=== PATIENT | male | born 1945 | race Caucasian/White ===

== ENCOUNTER 2016-08-03 10:17 | Emergency (ER) | payer MEDICARE, BC, OTHER ==
[~2016-08-03 10:17] MED LIST: ASPI1TAB69 PO; BUPR150CR PO; CARD180C5 PO; GABA300C5 PO; LIPI10TA PO; METH2.5T PO; PRED-503 PO; PROT40TA PO; PROV200T11 PO; SIMP50IN SQ; TRAZ150T75 PO
[2016-08-03 10:19] VITALS: BP 168/83; PULSE 62; RESP 18; TEMP 97.5; O2SAT 98
--- NOTE | 2016-08-03 10:26 | PD ---
HPI Chief Complaint: GI Complaint Time Seen by Provider: 10:24 Travel History International Travel<30 days: No Contact w/Intl Traveler<30days: No Traveled to known affect area: No History of Present Illness HPI This is a 71 year old male who presents to the emergency department with epigastric abdominal pain that started yesterday, non-radiating, constant, severe. Pt. denies any vomiting or diarrhea, but does feel nauseous. This has happened to him in the past and he has been prescribed omeprazole and it hasn't helped his symptoms. (-) fevers/chills Pt. has been told he has an "ulcerated esophagus" in the past. Pt. had a recent endoscopy confirming this. PFSH Past Medical History Hx Anticoagulant Therapy: Yes Arthritis: Yes Atrial Fibrillation: Yes Autoimmune Disease: No Blood Disorders: No Anxiety: Yes Depression: Yes Heart Rhythm Problems: No Cancer: No Cardiac Catheterization: Yes (stent) Cardiovascular Problems: Yes High Cholesterol: Yes Chemotherapy: No Chest Pain: Yes Congestive Heart Failure: Yes Coronary Artery Disease: Yes Diabetes: Yes Diminished Hearing: Yes (HEARING AIDS) Endocrine: No Gastrointestinal Disorders: No GERD: No Glaucoma: No Genitourinary: Yes Hepatitis: No Hiatal Hernia: No Heparin Induced Thrombocytopen: No Hypertension: Yes Immune Disorder: Yes (RA) Implanted Vascular Access Dvce: No Kidney Stones: No Musculoskeletal: Yes (ARTHRITIS) Neurologic: No Psychiatric: Yes (DEPRESSION/ANXIETY) Reproductive: No Respiratory: No Integumentary: Yes (psoriasis ) Immunizations Current: No Myocardial Infarction: Yes (2006) Radiation Therapy: No Renal Failure: No Thyroid Disease: No Ulcer: No ?: Not Past Surgical History Abdominal Surgery: No AICD: No Appendectomy: No Arteriovenous Shunt: No Body Medical Devices: cardiac stent Cardiac Surgery: Yes (CARDIAC STENTS PLACED 2006) Cholecystectomy: No Coronary Artery Bypass Graft: No Ear Surgery: No Endocrine Surgery: No Eye Surgery: No Genitourinary Surgery: No Insulin Pump: No Joint Replacement: No Neurologic Surgery: No Oral Surgery: No Pacemaker: No Thoracic Surgery: No Other Surgery: Yes (throat 1964 sliced) Social History Alcohol Use: Yes (OCCASSIONAL GLASS WINE) Tobacco Use: No Substance Use: Yes (pot nightly; 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.) Allergies-Medications (Allergen,Severity, Reaction): Coded Allergies: Imodium (Verified Allergy, Severe, 08/03/16) Lomotil (Verified Allergy, Severe, HIVES, 08/03/16) Reported Meds & Prescriptions Reported Meds & Active Scripts Active Reported Omeprazole 20 Mg Tab 20 Mg PO DAILY Trazodone (Trazodone HCl) 150 Mg Tab 150 Mg PO HS Simponi Inj (Golimumab) 50 Mg/0.5 Ml Syr 50 Mg SQ Q30D Deltasone (Prednisone) 20 Mg Tab 5 Mg PO DAILY Protonix (Pantoprazole Sodium) 40 Mg Tab 40 Mg PO DAILY Provigil (Modafinil) 200 Mg Tab 200 Mg PO DAILY Methotrexate 2.5 Mg Tab 2.5 Mg PO Q7D Gabapentin 300 Mg Cap 300 Mg PO TID Cardizem CD 24 HR (Diltiazem CD 24 HR) 180 Mg Caper 180 Mg PO HS Wellbutrin SR 12 HR (Bupropion HCl) 150 Mg Tab 150 Mg PO HS Lipitor (Atorvastatin Calcium) 10 Mg Tab 10 Mg PO HS Aspirin 81 Mg Tabdr 162 Mg PO HS Review of Systems Except as stated in HPI: all other systems reviewed are Neg Physical Exam Narrative GENERAL:Uncomfortable appearing. SKIN: Focused skin assessment warm and dry. HEAD: Atraumatic. Normocephalic. EYES: Pupils equal and round. No injection or drainage. ENT: Moist mucous membranes NECK: Trachea midline. CARDIOVASCULAR: Regular rate and rhythm. No murmur appreciated. RESPIRATORY: Clear to auscultation. Breath sounds equal bilaterally. GASTROINTESTINAL: Abdomen soft, tender to palpation in the epigastrium with guarding diffusely. MUSCULOSKELETAL: No obvious deformities. NEUROLOGICAL: Awake and alert. No obvious cranial nerve deficits. Moving all extremities. PSYCHIATRIC: Appropriate mood and affect; insight and judgment normal. Data Data Last Documented VS Vital Signs Date Time Temp Pulse Resp B/P Pulse Ox O2 Delivery O2 Flow Rate FiO2 08/03/16 11:48 70 18 133/71 99 Room Air 08/03/16 10:19 97.5 Orders Complete Blood Count With Diff (08/03/16 10:30) Comprehensive Metabolic Panel (08/03/16 10:30) Lipase (08/03/16 10:30) Urinalysis - C+S If Indicated (08/03/16 10:30) Ct Abd/Pel W Iv Contrast(Rout) (08/03/16 10:30) Iv Access Insert/Monitor (08/03/16 10:30) Ecg Monitoring (08/03/16 10:30) Oximetry (08/03/16 10:30) Sodium Chloride 0.9% Flush (Ns Flush) (08/03/16 10:30) Chest, Single Ap (08/03/16 ) Hydromorphone Pf Inj (Dilaudid Pf Inj) (08/03/16 10:30) Ondansetron Inj (Zofran Inj) (08/03/16 10:30) Sodium Chlor 0.9% 1000 Ml Inj (Ns 1000 M (08/03/16 10:30) Iohexol 350 Inj (Omnipaque 350 Inj) (08/03/16 11:47) Labs Laboratory Tests Test 08/03/16 08/03/16 10:40 11:45 White Blood Count 10.9 TH/MM3 Red Blood Count 4.60 MIL/MM3 Hemoglobin 14.3 GM/DL Hematocrit 43.4 % Mean Corpuscular Volume 94.2 FL Mean Corpuscular Hemoglobin 31.1 PG Mean Corpuscular Hemoglobin 33.0 % Concent Red Cell Distribution Width 16.4 % Platelet Count 172 TH/MM3 Mean Platelet Volume 7.8 FL Neutrophils (%) (Auto) 72.5 % Lymphocytes (%) (Auto) 20.3 % Monocytes (%) (Auto) 5.6 % Eosinophils (%) (Auto) 0.7 % Basophils (%) (Auto) 0.9 % Neutrophils # (Auto) 7.9 TH/MM3 Lymphocytes # (Auto) 2.2 TH/MM3 Monocytes # (Auto) 0.6 TH/MM3 Eosinophils # (Auto) 0.1 TH/MM3 Basophils # (Auto) 0.1 TH/MM3 CBC Comment DIFF FINAL Differential Comment Sodium Level 139 MEQ/L Potassium Level 3.4 MEQ/L Chloride Level 102 MEQ/L Carbon Dioxide Level 27.5 MEQ/L Anion Gap 10 MEQ/L Blood Urea Nitrogen 21 MG/DL Creatinine 1.40 MG/DL Estimat Glomerular Filtration 50 ML/MIN Rate Random Glucose 134 MG/DL Calcium Level 9.7 MG/DL Total Bilirubin 0.7 MG/DL Aspartate Amino Transf 21 U/L (AST/SGOT) Alanine Aminotransferase 26 U/L (ALT/SGPT) Alkaline Phosphatase 55 U/L Total Protein 7.0 GM/DL Albumin 3.5 GM/DL Lipase 160 U/L Urine Collection Type VOIDED Urine Color YELLOW Urine Turbidity CLEAR Urine pH 8.0 Urine Specific [place] 1.027 Urine Protein TRACE mg/dL Urine Glucose (UA) 100 mg/dL Urine Ketones 40 mg/dL Urine Occult Blood TRACE Urine Nitrite NEG Urine Bilirubin NEG Urine Leukocyte Esterase NEG Urine RBC 0-3 /hpf Urine WBC 0-2 /hpf Urine Squamous Epithelial 0-5 /hpf Cells Urine Amorphous Sediment FEW Urine Bacteria RARE /hpf Microscopic Urinalysis Comment CULT NOT INDICATED Urine Collection Time 1145 MDM Medical Decision Making Medical Screen Exam Complete: Yes Emergency Medical Condition: Yes Interpretation(s) Afebrile, no tachycardia, hypertensive No leukocytosis Renal insufficiency similar to prior Lipase normal Urinalysis: Glucosuria and some ketonuria Differential Diagnosis Pancreatitis, gastritis, peptic ulcer disease, cholelithiasis, cholecystitis, perforated peptic ulcer Narrative Course Is a 71-year-old male who presents to the emergency department with abdominal pain. He is diffusely tender on exam and looks uncomfortable. He is placed in a monitor and an IV was established. Labs are obtained which were all reassuring and CT abdomen and pelvis is negative for acute surgical etiology of his symptoms. I suspect he is having symptomatic reflux and possibly gastritis. He will be discharged on Zantac in addition to his PPI as well as sucralfate. Diagnosis Primary Impression: Abdominal pain Qualified Code: R10.84 - Generalized abdominal pain Patient Instructions: General Instructions Additional Instructions: If you develop severe or worsening abdominal pain, fever>100.4, persistent vomiting or inability to eat or drink return to the emergency department immediately. Follow up with your primary care physician in 1-2 days for a check-up. Med/Other Pt SpecificInfo: Prescription(s) given Scripts Sucralfate 1 Gm Tab1 Gm PO TID #90 TAB Ref 0 on empty stomach Prov:Shabnam Sims MD 08/03/16 Ranitidine 150 Mg [id number] Mg PO BID #60 TAB Ref 0 Prov:Shabnam Sims MD 08/03/16 Disposition: 01 DISCHARGE HOME Condition: Stable Shabnam Sims MD August 03, 2016 10:26
[2016-08-03] MEDS ORDERED: OMEP20TA PO (10:27)
[2016-08-03] MEDS ORDERED: ONDANSETRON HCL 4 MG/2 ML VIAL IV PUSH ONE (10:30)
[2016-08-03] MEDS ORDERED: SODIUM CHLORIDE 0.9% FLUSH 10 ML FLUSH IV FLUSH PRN (10:30)
[2016-08-03] MEDS ORDERED: SODIUM CHLOR 0.9% 1000 ML INJ 1,000 ML IV ONE (10:30)
[2016-08-03] MEDS ORDERED: HYDROmorphone HCL PF 1 MG/ML VIAL IV PUSH ONE (10:30)
[2016-08-03 10:45] VITALS: BP 156/83; PULSE 60; RESP 18; O2SAT 99
[2016-08-03 10:57] LABS: AUTOMATED NEUTROPHIL # 7.9 TH/MM3 (1.8-7.7); BASOPHIL # 0.1 TH/MM3 (0-0.2); BASOPHIL % 0.9 % (0.0-2.0); EOSINOPHIL # 0.1 TH/MM3 (0-0.4); EOSINOPHIL % 0.7 % (0.0-4.0); HEMATOCRIT 43.4 % (39.0-51.0); HEMO FLAGS DIFF FINAL; LYMPH % 20.3 % (9.0-44.0); LYMPHOCYTE # 2.2 TH/MM3 (1.0-4.8); MEAN CELL VOLUME 94.2 FL (80.0-100.0); MEAN CORPUSCULAR HEMOGLOBIN 31.1 PG (27.0-34.0); MONO % 5.6 % (0.0-8.0); NEUT % 72.5 % (16.0-70.0); PLATELET COUNT 172 TH/MM3 (150-450); RED CELL DISTRIBUTION WIDTH 16.4 % (11.6-17.2); WHITE BLOOD COUNT 10.9 TH/MM3 (4.0-11.0)
[2016-08-03 11:08] LABS: CHLORIDE 102 MEQ/L (98-107); POTASSIUM 3.4 MEQ/L (3.5-5.1); SODIUM (NA) 139 MEQ/L (136-145)
[2016-08-03 11:14] LABS: ANION GAP 10 MEQ/L (5-15); BICARBONATE 27.5 MEQ/L (21.0-32.0); BLOOD UREA NITROGEN 21 MG/DL (7-18)
[2016-08-03 11:17] LABS: ALT (GPT) 26 U/L (12-78); AST (GOT) 21 U/L (15-37); GLOMERULAR FILTRATION RATE 50 ML/MIN (>89)
[2016-08-03 11:18] LABS: TOTAL BILIRUBIN ADULT 0.7 MG/DL (0.2-1.0)
[2016-08-03 11:20] LABS: ALKALINE PHOSPHATASE 55 U/L (45-117)
[2016-08-03] MEDS ORDERED: IOHEXOL 350 MG/ML 10 ML VIAL (for RAD DIAG) IV ONE (11:47)
[2016-08-03 11:48] VITALS: BP 133/71; PULSE 70; RESP 18; O2SAT 99
[2016-08-03 11:54] LABS: BLOOD, URINE TRACE (NEG); GLUCOSE,URINE 100 mg/dL (NEG); KETONE, URINE 40 mg/dL (NEG); NITRITE,URINE NEG (NEG)
[2016-08-03 12:10] LABS: METHOD OF COLLECTION VOIDED; URINE COLOR YELLOW (YELLW/STRAW)
[2016-08-03 12:13] LABS: RBC, URINE 0-3 /hpf (0-3); SQUAMOUS EPITHELIAL CELL URINE 0-5 /hpf (0-5); WBC, URINE 0-2 /hpf (0-5)
[2016-08-03 12:15] LABS: BACTERIA, URINE RARE /hpf
[2016-08-03 12:17] LABS: COMMENT (UR) CULT NOT INDICATED; CULTURE IF INDICATED CULT NOT INDICATED
--- NOTE | 2016-08-03 12:18 | RADHPO ---
EXAM DATE/TIME: 08/03/2016 11:29 [facility] COMPARISON: CT ABDOMEN & PELVIS W CONTRAST, March 01, 2014, 13:42. INDICATIONS : Abdomen pain. IV CONTRAST: 71 cc Omnipaque 350 (iohexol) IV ORAL CONTRAST: No oral contrast ingested. RADIATION DOSE: 12.09 CTDIvol (mGy) MEDICAL HISTORY : Hypertension. SURGICAL HISTORY : ENCOUNTER: Initial ACUITY: 1 day PAIN SCALE: 2/10 LOCATION: TECHNIQUE: Volumetric scanning of the abdomen and pelvis was performed. Using automated exposure control and ad justment of the mA and/or kV according to patient size, radiation dose was kept as low as reasonably achievable to obtain optimal diagnostic quality images. FINDINGS: Coronary artery calcifications are present. Examination of the lung bases demonstrates no abnormality . No pleural fluid is identified. No pulmonary nodules are present. There is hypodensity within the l iver compatible with cyst measuring 10 mm in segment 5. The spleen is normal in size and free of foca l defects. The gallbladder and pancreas are unremarkable. No intrahepatic or extrahepatic ductal dila tation is seen. The right adrenal gland is unremarkable. There is a nodule in the left adrenal gland likely reflecting adenoma measuring 10 mm. There are multiple stones within the right kidney without hydronephrosis the largest measuring 6 mm in the lower pole. There is a single simple cyst in the le ft kidney measuring 3 cm in the lower pole. Examination of the pelvis demonstrates no evidence of free fluid or pelvic mass. No abnormally enlarg ed inguinal or retroperitoneal lymph nodes are present. The bladder is unremarkable. There is diverti culosis without evidence of diverticulitis. The prostate gland is moderately enlarged impinging on th e bladder base. CONCLUSION: 1. No evidence of acute abdominal or pelvic process. No masses are identified. 2. Diverticulosis without evidence of diverticulitis. Pancho Saba MD on August 03, 2016 at 12:11 Board Certified Radiologist. This report was verified electronically.
[2016-08-03] MEDS ORDERED: SUCR1TAB PO (12:40)
[2016-08-03] MEDS ORDERED: RANI150T PO (12:40)
--- NOTE | 2016-08-03 12:41 | RADHPO ---
EXAM DATE/TIME: 08/03/2016 11:18 [facility] COMPARISON: CHEST SINGLE AP, November 09, 2013, 16:06. INDICATIONS : Short of breath, upper abdominal pain. MEDICAL HISTORY : Cardiovascular disease. Myocardial infarction. Hypertension SURGICAL HISTORY : cardiac stent ENCOUNTER: Initial ACUITY: 2 weeks PAIN SCORE: 2/10 LOCATION: Bilateral chest FINDINGS: A single view of the chest demonstrates minimal left basilar density. Right lung clear. The cardiome diastinal contours are unremarkable. Osseous structures are intact. CONCLUSION: Left basilar atelectasis.. Omar Del Cid MD on August 03, 2016 at 12:38 Board Certified Radiologist. This report was verified electronically.
== END 2016-08-03 13:02 | disposition home or self-care (01) ==
LOC: PHED 10:17
DX: R10.84 Generalized abdominal pain (principal); M19.90 Unspecified osteoarthritis, unspecified site; I48.91 Unspecified atrial fibrillation; F41.9 Anxiety disorder, unspecified; E78.00 Pure hypercholesterolemia, unspecified; I50.9 Heart failure, unspecified; I25.10 Atherosclerotic heart disease of native coronary artery without angina pectoris; E11.9 Type 2 diabetes mellitus without complications; I10 Essential (primary) hypertension
CPT/HCPCS: 71010; 74177; 80053; 81001; 83690; 85025; 96361; 96374; 96375; 99284; J1170; J2405; J7030; Q9967

== ENCOUNTER 2017-04-08 10:38 | Emergency (ER) | payer MEDICARE, BC, OTHER ==
[~2017-04-08] VITALS: Ht 182.9 cm; Wt 79.9 kg
[~2017-04-08 10:38] MED LIST changes: +MODA1TAB31 PO; +OMEP20TA93 PO; -PROV200T11 PO; +RANI150T PO; +SUCR1TAB PO
[2017-04-08 10:48] VITALS: BP 122/73; PULSE 164; RESP 18; TEMP 97.3; O2SAT 95
[2017-04-08] MEDS ORDERED: SODIUM CHLORIDE 0.9% FLUSH 10 ML FLUSH IVF PRN (11:15)
[2017-04-08] MEDS ORDERED: methylPREDNISolone SOD SUCC 125 MG/2 ML VIAL IV PUSH ONE (11:15)
--- NOTE | 2017-04-08 11:17 | PD ---
HPI Chief Complaint: Cold / Flu Symptoms Time Seen by Provider: 11:10 Travel History International Travel<30 days: No Contact w/Intl Traveler<30days: No Traveled to known affect area: No History of Present Illness HPI 71-year-old male arrives complaining of about 5 days of cough and chest congestion. He reports a sick contact at home recently discharged from the hospital with similar symptoms. He reports some musculoskeletal chest pain with coughing episodes. No shortness of breath is reported. Occasional phlegm production is reported. Patient reports a fever at home 2 days prior. He has tried Mucinex which has not helped much. PFSH Past Medical History Hx Anticoagulant Therapy: Yes Arthritis: Yes Atrial Fibrillation: Yes Autoimmune Disease: No Blood Disorders: No Anxiety: Yes Depression: Yes Heart Rhythm Problems: No Cancer: No Cardiac Catheterization: Yes (stent) Cardiovascular Problems: Yes High Cholesterol: Yes Chemotherapy: No Chest Pain: Yes Congestive Heart Failure: Yes Coronary Artery Disease: Yes Diabetes: Yes Patient Takes Glucophage: No Diminished Hearing: Yes (HEARING AIDS) Endocrine: No Gastrointestinal Disorders: No GERD: No Glaucoma: No Genitourinary: Yes Hepatitis: No Hiatal Hernia: No Heparin Induced Thrombocytopen: No Hypertension: Yes Immune Disorder: Yes (RA) Implanted Vascular Access Dvce: No Kidney Stones: No Musculoskeletal: Yes (ARTHRITIS) Neurologic: No Psychiatric: Yes (DEPRESSION/ANXIETY) Reproductive: No Respiratory: No Integumentary: Yes (psoriasis ) Immunizations Current: No Myocardial Infarction: Yes (2006) Radiation Therapy: No Renal Failure: No Thyroid Disease: No Ulcer: No Past Surgical History Abdominal Surgery: No AICD: No Appendectomy: No Arteriovenous Shunt: No Body Medical Devices: cardiac stent Cardiac Surgery: Yes (CARDIAC STENTS PLACED 2006) Cholecystectomy: No Coronary Artery Bypass Graft: No Ear Surgery: No Endocrine Surgery: No Eye Surgery: No Genitourinary Surgery: No Insulin Pump: No Joint Replacement: No Neurologic Surgery: No Oral Surgery: No Pacemaker: No Thoracic Surgery: No Other Surgery: Yes (throat 1964 sliced) Family History Family Myocardial Infarction: Yes (FATHER) Social History Alcohol Use: Yes (OCCASSIONAL GLASS WINE) Tobacco Use: No Substance Use: Yes (pot nightly) Allergies-Medications (Allergen,Severity, Reaction): Coded Allergies: atropine (Unverified Allergy, Severe, HIVES, 04/08/17) diphenoxylate (Unverified Allergy, Severe, HIVES, 04/08/17) loperamide (Unverified Allergy, Severe, DOES NOT REMEMBER, 04/08/17) Reported Meds & Prescriptions Reported Meds & Active Scripts Active Tessalon Perles (Benzonatate) 100 Mg Cap 100 Mg PO TID PRN Azithromycin 250 Mg Tab 250 Mg PO DIRECTED Take 2 tabs (500 mg) on day 1 then 1 tab daily x 4 days. Proventil Hfa 6.7 GM Inh (Albuterol Sulfate) 90 Mcg/Act Aer 2 Puff INH Q6H PRN Prednisone 20 Mg Tab 40 Mg PO DAILY 4 Days Take 40 mg (2 tablets) daily for 5 days Sucralfate 1 Gm Tab 1 Gm PO TID on empty stomach Ranitidine (Ranitidine HCl) 150 Mg Tab 150 Mg PO BID Reported Omeprazole 20 Mg Tab 20 Mg PO DAILY Trazodone (Trazodone HCl) 150 Mg Tab 150 Mg PO HS Simponi Inj (Golimumab) 50 Mg/0.5 Ml Syr 50 Mg SQ Q30D Deltasone (Prednisone) 20 Mg Tab 5 Mg PO DAILY Protonix (Pantoprazole Sodium) 40 Mg Tab 40 Mg PO DAILY Provigil (Modafinil) 200 Mg Tab 200 Mg PO DAILY Methotrexate 2.5 Mg Tab 2.5 Mg PO Q7D Gabapentin 300 Mg Cap 300 Mg PO TID Cardizem CD 24 HR (Diltiazem CD 24 HR) 180 Mg Caper 180 Mg PO HS Wellbutrin SR 12 HR (Bupropion HCl) 150 Mg Tab 150 Mg PO HS Lipitor (Atorvastatin Calcium) 10 Mg Tab 10 Mg PO HS Review of Systems Except as stated in HPI: all other systems reviewed are Neg General / Constitutional: Positive: Fever (subjective) Respiratory: Positive: Cough, Wheezing Physical Exam Narrative GENERAL: 71-year-old male well-nourished well-developed pleasant SKIN: Warm and dry. HEAD: Atraumatic. Normocephalic. EYES: Pupils equal and round. No scleral icterus. No injection or drainage. ENT: No nasal bleeding or discharge. Mucous membranes pink and moist. NECK: Trachea midline. No JVD. CARDIOVASCULAR: There is a regular rhythm with a rate of about 80. EKG showed A. fib RVR RESPIRATORY: Frequent cough. Wheezing present. GASTROINTESTINAL: Abdomen soft, non-tender, nondistended. Hepatic and splenic margins not palpable. MUSCULOSKELETAL: Extremities without clubbing, cyanosis, or edema. No obvious deformities. NEUROLOGICAL: Awake and alert. No obvious cranial nerve deficits. Motor grossly within normal limits. Five out of 5 muscle strength in the arms and legs. Normal speech. PSYCHIATRIC: Appropriate mood and affect; insight and judgment normal. Data Data Last Documented VS Vital Signs Date Time Temp Pulse Resp B/P (MAP) Pulse Ox O2 Delivery O2 Flow Rate FiO2 04/08/17 12:52 84 18 124/78 (93) 96 04/08/17 12:08 Room Air 04/08/17 10:48 97.3 Heart rate decreased to the 80s spontaneously Orders Orders Complete Blood Count With Diff (04/08/17 11:15) Basic Metabolic Panel (Bmp) (04/08/17 11:15) B-Type Natriuretic Peptide (04/08/17 11:15) D-Dimer (04/08/17 11:15) Ckmb (Isoenzyme) Profile (04/08/17 11:15) Troponin I (04/08/17 11:15) Iv Access Insert/Monitor (04/08/17 11:15) Ecg Monitoring (04/08/17 11:15) Oximetry (04/08/17 11:15) Oxygen Administration (04/08/17 11:15) Chest, Single Ap (04/08/17 11:15) Sodium Chloride 0.9% Flush (Ns Flush) (04/08/17 11:15) Methylprednisolone So Succ Inj (Solumedr (04/08/17 11:15) Electrocardiogram (04/08/17 10:52) Electrocardiogram (04/08/17 ) Ed Discharge Order (04/08/17 12:39) Labs Laboratory Tests Test 04/08/17 11:30 White Blood Count 5.6 TH/MM3 Red Blood Count 4.66 MIL/MM3 Hemoglobin 14.6 GM/DL Hematocrit 45.2 % Mean Corpuscular Volume 96.9 FL Mean Corpuscular Hemoglobin 31.3 PG Mean Corpuscular Hemoglobin Concent 32.3 % Red Cell Distribution Width 14.0 % Platelet Count 139 TH/MM3 Mean Platelet Volume 7.1 FL Neutrophils (%) (Auto) 54.3 % Lymphocytes (%) (Auto) 30.9 % Monocytes (%) (Auto) 11.8 % Eosinophils (%) (Auto) 2.0 % Basophils (%) (Auto) 1.0 % Neutrophils # (Auto) 3.0 TH/MM3 Lymphocytes # (Auto) 1.7 TH/MM3 Monocytes # (Auto) 0.7 TH/MM3 Eosinophils # (Auto) 0.1 TH/MM3 Basophils # (Auto) 0.1 TH/MM3 CBC Comment DIFF FINAL Differential Comment D-Dimer Quantitative (PE/DVT) 0.39 MG/L FEU Blood Urea Nitrogen 17 MG/DL Creatinine 1.50 MG/DL Random Glucose 121 MG/DL Calcium Level 8.5 MG/DL Sodium Level 138 MEQ/L Potassium Level 3.4 MEQ/L Chloride Level 101 MEQ/L Carbon Dioxide Level 28.2 MEQ/L Anion Gap 9 MEQ/L Estimat Glomerular Filtration Rate 46 ML/MIN Total Creatine Kinase 62 U/L Troponin I LESS THAN 0.02 NG/ML B-Type Natriuretic Peptide 10 PG/ML MDM Medical Decision Making Medical Screen Exam Complete: Yes Emergency Medical Condition: Yes Medical Record Reviewed: Yes Differential Diagnosis Pneumonia, influenza, bronchitis, A. fib RVR, coronary disease Narrative Course EKG shows A. fib RVR rate 163 Patient takes aspirin and diltiazem. He does not take direct oral anticoagulants or Coumadin. Pt has known hx of paroxysmal atrial fibrillation. CBC & BMP Diagram 04/08/17 11:30 Calcium Level 8.5 The BNP is 10 The d-dimer is 0.39 The chest x-ray shows no dense consolidation The repeat EKG shows a sinus rhythm. The patient states he grabbed take his diltiazem this morning and will take it upon return to his house. Scripts as below Return precautions discussed Diagnosis Primary Impression: Cough Additional Impressions: A-fib Qualified Codes: I48.0 - Paroxysmal atrial fibrillation Wheezing Referrals: Primary Care Physician call for appointment Med/Other Pt SpecificInfo: Prescription(s) given Scripts Benzonatate (Tessalon Perles) 100 Mg Cap 100 MG PO TID Y for COUGH, #10 CAP 0 Refills Prov: Gonzalez Mullins MD 04/08/17 Azithromycin (Azithromycin) 250 Mg Tab 250 MG PO DIRECTED for Infection, #6 TAB 0 Refills Take 2 tabs (500 mg) on day 1 then 1 tab daily x 4 days. Prov: Gonzalez Mullins MD 04/08/17 Albuterol 6.7 GM Inh (Proventil Hfa 6.7 GM Inh) 90 Mcg/Act Aer 2 PUFF INH Q6H Y for SHORTNESS OF BREATH, #1 INHALER 0 Refills Prov: Gonzalez Mullins MD 04/08/17 Prednisone (Prednisone) 20 Mg Tab 40 MG PO DAILY for 4 Days, #8 TAB 0 Refills Take 40 mg (2 tablets) daily for 5 days Prov: Gonzalez Mullins MD 04/08/17 Disposition: 01 DISCHARGE HOME Condition: Stable Gonzalez Mullins MD Apr 08, 2017 11:17
[2017-04-08 11:23] VITALS: O2SAT 98
[2017-04-08 11:34] LABS: BASOPHIL # 0.1 TH/MM3 (0-0.2); EOSINOPHIL # 0.1 TH/MM3 (0-0.4); HEMATOCRIT 45.2 % (39.0-51.0); HEMOGLOBIN 14.6 GM/DL (13.0-17.0); LYMPH % 30.9 % (9.0-44.0); LYMPHOCYTE # 1.7 TH/MM3 (1.0-4.8); MEAN CELL VOLUME 96.9 FL (80.0-100.0); MEAN CORPUSCULAR HEMOGLOBIN 31.3 PG (27.0-34.0); MEAN CORPUSCULAR HGB CONC 32.3 % (32.0-36.0); MEAN PLATELET VOLUME 7.1 FL (7.0-11.0); MONO % 11.8 % (0.0-8.0); MONOCYTE # 0.7 TH/MM3 (0-0.9); NEUT % 54.3 % (16.0-70.0); PLATELET COUNT 139 TH/MM3 (150-450); RED BLOOD COUNT 4.66 MIL/MM3 (4.50-5.90); WHITE BLOOD COUNT 5.6 TH/MM3 (4.0-11.0)
[2017-04-08 11:35] VITALS: BP 124/77; PULSE 70; RESP 18; O2SAT 95
[2017-04-08 11:42] LABS: CHLORIDE 101 MEQ/L (98-107); SODIUM (NA) 138 MEQ/L (136-145)
[2017-04-08 11:45] LABS: BICARBONATE 28.2 MEQ/L (21.0-32.0); BLOOD UREA NITROGEN 17 MG/DL (7-18); CALCIUM 8.5 MG/DL (8.5-10.1); GLUCOSE,RANDOM 121 MG/DL (74-106)
[2017-04-08 11:49] LABS: GLOMERULAR FILTRATION RATE 46 ML/MIN (>89)
[2017-04-08 11:53] LABS: TROPONIN I LESS THAN 0.02 NG/ML (0.02-0.05)
[2017-04-08 12:08] VITALS: BP 128/72; PULSE 89; RESP 18; O2SAT 96
--- NOTE | 2017-04-08 12:17 | RADRPT ---
EXAM DATE/TIME: 04/08/2017 11:45 [facility] COMPARISON: CHEST SINGLE AP, August 03, 2016, 11:18. INDICATIONS : Cough, short of breath. MEDICAL HISTORY : Cardiovascular disease. Myocardial infarction. Hypertension. SURGICAL HISTORY : Coronary artery stent. ENCOUNTER: Initial ACUITY: 1 week PAIN SCORE: 0/10 LOCATION: Bilateral chest FINDINGS: 2 AP erect portable views of the chest demonstrates the lungs to be symmetrically aerated without ike dence of mass, infiltrate or effusion. The cardiomediastinal contours are unremarkable. Osseous str uctures are intact. Mild atherosclerotic calcifications are present in the aorta. The overlying elect rocardiogram leads. CONCLUSION: No acute disease. There is no evidence of pneumonia. Ray Gandara MD on April 08, 2017 at 12:13 Board Certified Radiologist. This report was verified electronically.
[2017-04-08] MEDS ORDERED: PRED20 PO (12:41)
[2017-04-08] MEDS ORDERED: AZIT250T3 PO (12:41)
[2017-04-08] MEDS ORDERED: ALBU6.7H INH (12:41)
[2017-04-08] MEDS ORDERED: BENZ100 PO (12:42)
[2017-04-08 12:52] VITALS: BP 124/78
--- NOTE | 2017-04-08 12:55 | EKG ---
Date Performed: 04/08/2017 Time Performed: 10:52:52 PTAGE: 71 years EKG: ATRIAL FLUTTER/TACHYCARDIA WITH RAPID VENTRICULAR RESPONSE MARKED LEFT AXIS DEVIATION MODER ATE ST DEPRESSION ABNORMAL ECG Compared to prior electrocardiogram, atrial flutter with rapid respons e is present. PREVIOUS TRACING : 02/27/2016 00.08 DOCTOR: Jelani Hernandez Interpretating Date/Time 04/08/2017 12:54:17
--- NOTE | 2017-04-09 13:06 | EKG ---
Date Performed: 04/08/2017 Time Performed: 12:17:55 PTAGE: 71 years EKG: Sinus rhythm WITH MARKED SINUS ARRHYTHMIA NONSPECIFIC ST & T-WAVE ABNORMALITY BORDERLINE ECG Compared to PREVIOUS TRACING , sinus rhythm has replaced rapid atrial flutter. PREVIOUS TRACIN03/21 10.52 DOCTOR: Wiliam Monroy Interpretating Date/Time 04/09/2017 13:06:18
== END 2017-04-08 12:55 | disposition home or self-care (01) ==
LOC: PHED 10:38
DX: R05 Cough (principal); I48.91 Unspecified atrial fibrillation; R06.2 Wheezing; R09.89 Other specified symptoms and signs involving the circulatory and respiratory systems; E11.9 Type 2 diabetes mellitus without complications; I11.0 Hypertensive heart disease with heart failure; F12.90 Cannabis use, unspecified, uncomplicated; Z79.01 Long term (current) use of anticoagulants
CPT/HCPCS: 71045; 80048; 82550; 83880; 84484; 85025; 85379; 93005; 96374; 99285; J2930

== ENCOUNTER 2017-06-27 05:48 | Inpatient (IN) | payer MEDICARE, BC, OTHER ==
[~2017-06-27] VITALS: Ht 182.9 cm; Wt 81.2 kg
[2017-06-27] VITALS (8 sets, daily range): BP systolic 114–167; BP diastolic 67–88; PULSE 59–115; RESP 16–19; TEMP 96.7–98.2; O2SAT 95–100
[~2017-06-27 05:48] MED LIST changes: +ALBU6.7H INH; -ASPI1TAB69 PO; +AZIT250T3 PO; +BENZ100 PO; +PRED20 PO
[2017-06-27] MEDS ORDERED: SODIUM CHLOR 0.9% 1000 ML INJ 1,000 ML IV SCH (06:02)
--- NOTE | 2017-06-27 06:11 | PD ---
HPI Chief Complaint: GI Complaint Time Seen by Provider: 06:02 Travel History International Travel<30 days: No Contact w/Intl Traveler<30days: No Traveled to known affect area: No History of Present Illness HPI 72-year-old male presents to the emergency department by EMS transport from home for evaluation of abdominal pain with multiple episodes of vomiting. Patient very poor historian unable to relay if he has had a emesis coffee- ground emesis or melena. Patient also had diarrhea but denies any melena hematochezia. Patient moans repetitively and does not provide onset of symptoms. Patient denies any chest pain or shortness of breath. Review of medical records indicates he has been treated before for colitis and has CAD by history. No reported fever or chills. No report of injury. No evidence of abdominal surgery. Patient administered Zofran 4 mg IV prior to arrival to the emergency department by EMS. Onset 2 days ago; no recent dietary indiscretion well water ingestion or foreign travel; no recent antibiotic use; patient denies chest pain or shortness of breath referred neck jaw back shoulder arm pain. Pain is 8/10 in intensity. PFSH Past Medical History Narrative Medical Atrial fibrillation rheumatoid arthritis dyslipidemia CHF CAD/HI with cardiac catheterization and stent diabetes impaired hearing colitis anxiety depression; occasional alcohol use marijuana use; nursing notes reviewed Hx Anticoagulant Therapy: Yes Arthritis: Yes Atrial Fibrillation: Yes Autoimmune Disease: No Blood Disorders: No Anxiety: Yes Depression: Yes Heart Rhythm Problems: No Cancer: No Cardiac Catheterization: Yes (stent) Cardiovascular Problems: Yes High Cholesterol: Yes Chemotherapy: No Chest Pain: Yes Congestive Heart Failure: Yes Coronary Artery Disease: Yes Diabetes: Yes Diminished Hearing: Yes (HEARING AIDS) Endocrine: No Gastrointestinal Disorders: No GERD: No Glaucoma: No Genitourinary: Yes Hepatitis: No Hiatal Hernia: No Heparin Induced Thrombocytopen: No Hypertension: Yes Immune Disorder: Yes (RA) Implanted Vascular Access Dvce: No Kidney Stones: No Musculoskeletal: Yes (ARTHRITIS) Neurologic: No Psychiatric: Yes (DEPRESSION/ANXIETY) Reproductive: No Respiratory: No Integumentary: Yes (psoriasis ) Immunizations Current: No Myocardial Infarction: Yes (2006) Radiation Therapy: No Renal Failure: No Thyroid Disease: No Ulcer: No ?: Not Past Surgical History Abdominal Surgery: No AICD: No Appendectomy: No Arteriovenous Shunt: No Body Medical Devices: cardiac stent Cardiac Surgery: Yes (CARDIAC STENTS PLACED 2006) Cholecystectomy: No Coronary Artery Bypass Graft: No Ear Surgery: No Endocrine Surgery: No Eye Surgery: No Genitourinary Surgery: No Insulin Pump: No Joint Replacement: No Neurologic Surgery: No Oral Surgery: No Pacemaker: No Thoracic Surgery: No Other Surgery: Yes (throat 1964 sliced) Social History Alcohol Use: Yes (OCCASSIONAL GLASS WINE) Tobacco Use: No Substance Use: Yes (pot nightly) Allergies-Medications (Allergen,Severity, Reaction): Coded Allergies: atropine (Verified Allergy, Severe, HIVES, 06/27/17) diphenoxylate (Verified Allergy, Severe, HIVES, 06/27/17) loperamide (Verified Allergy, Severe, DOES NOT REMEMBER, 06/27/17) Reported Meds & Prescriptions Reported Meds & Active Scripts Active Proventil Hfa 6.7 GM Inh (Albuterol Sulfate) 90 Mcg/Act Aer 2 Puff INH Q6H PRN Sucralfate 1 Gm Tab 1 Gm PO TID on empty stomach Ranitidine (Ranitidine HCl) 150 Mg Tab 150 Mg PO BID Reported Omeprazole 20 Mg Tab 20 Mg PO DAILY Trazodone (Trazodone HCl) 150 Mg Tab 150 Mg PO HS Simponi Inj (Golimumab) 50 Mg/0.5 Ml Syr 50 Mg SQ Q30D Protonix (Pantoprazole Sodium) 40 Mg Tab 40 Mg PO DAILY Provigil (Modafinil) 200 Mg Tab 200 Mg PO DAILY Methotrexate 2.5 Mg Tab 2.5 Mg PO Q7D Gabapentin 300 Mg Cap 300 Mg PO TID Cardizem CD 24 HR (Diltiazem CD 24 HR) 180 Mg Caper 180 Mg PO HS Wellbutrin SR 12 HR (Bupropion HCl) 150 Mg Tab 150 Mg PO HS Lipitor (Atorvastatin Calcium) 10 Mg Tab 10 Mg PO HS Review of Systems ROS Limitations: Uncooperative, Poor Historian Except as stated in HPI: all other systems reviewed are Neg General / Constitutional: No: Fever HENT: No: Headaches, Congestion Respiratory: No: Shortness of Breath Gastrointestinal: Positive: Nausea, Vomiting, Diarrhea, Abdominal Pain, No: Hematemesis, Hematochezia Genitourinary: No: Dysuria, Flank Pain Musculoskeletal: No: Myalgias, Arthralgias Skin: No Rash Neurologic: Positive: Weakness Psychiatric: Positive: Anxiety Hematologic/Lymphatic: No: Lymph Node Enlargement Physical Exam Narrative GENERAL: Well-developed well-nourished ill-appearing male moaning and appears to be in no respiratory distress; blood pressure 139/88; heart rate 95 in sinus rhythm; room air O2 saturation 96-98%, afebrile respiratory rate 18. SKIN: Warm and dry. HEAD: Normocephalic. EYES: No scleral icterus. No injection or drainage. NECK: Supple, trachea midline. No JVD or lymphadenopathy. CARDIOVASCULAR: Regular rate and rhythm without murmurs, gallops, or rubs. RESPIRATORY: Breath sounds equal bilaterally. No accessory muscle use. GASTROINTESTINAL: Abdomen soft, diffusely tender primarily right upper quadrant without guarding or rebound and no palpable pulsatile mass, nondistended. Rectal exam: Decreased sphincter tone mucus on glove is Hemoccult negative MUSCULOSKELETAL: No cyanosis, or edema. BACK: Nontender without obvious deformity. No CVA tenderness. Data Data Last Documented VS Vital Signs Date Time Temp Pulse Resp B/P (MAP) Pulse Ox O2 Delivery O2 Flow Rate FiO2 06/27/17 07:00 59 16 167/84 (111) 100 Room Air 06/27/17 05:50 98.2 Orders Orders Complete Blood Count With Diff (06/27/17 06:02) Comprehensive Metabolic Panel (06/27/17 06:02) Lipase (06/27/17 06:02) Lactic Acid (06/27/17 06:02) Prothrombin Time / Inr (Pt) (06/27/17 06:02) Act Partial Throm Time (Ptt) (06/27/17 06:02) Urinalysis - C+S If Indicated (06/27/17 06:02) Iv Access Insert/Monitor (06/27/17 06:02) Ecg Monitoring (06/27/17 06:02) Oximetry (06/27/17 06:02) Ondansetron Inj (Zofran Inj) (06/27/17 06:15) Sodium Chlor 0.9% 1000 Ml Inj (Ns 1000 M (06/27/17 06:02) Sodium Chloride 0.9% Flush (Ns Flush) (06/27/17 06:15) Electrocardiogram (06/27/17 06:02) Chest, Single Ap (06/27/17 06:02) Ondansetron Inj (Zofran Inj) (06/27/17 06:15) Morphine Inj (Morphine Inj) (06/27/17 06:15) Pantoprazole Inj (Protonix Inj) (06/27/17 06:15) Troponin I (06/27/17 06:02) Magnesium (Mg) (06/27/17 06:02) Hydromorphone Pf Inj (Dilaudid Pf Inj) (06/27/17 06:30) Piperacil-Tazo 4.5 Gm Premix (Zosyn 4.5 (06/27/17 06:45) Cta Abd/Pel W Iv Contrast W 3d (06/27/17 ) Labs Laboratory Tests Test 06/27/17 06:10 White Blood Count 15.1 TH/MM3 Red Blood Count 4.88 MIL/MM3 Hemoglobin 16.0 GM/DL Hematocrit 45.6 % Mean Corpuscular Volume 93.5 FL Mean Corpuscular Hemoglobin 32.8 PG Mean Corpuscular Hemoglobin Concent 35.1 % Red Cell Distribution Width 14.8 % Platelet Count 202 TH/MM3 Mean Platelet Volume 7.7 FL Neutrophils (%) (Auto) 52.9 % Lymphocytes (%) (Auto) 30.9 % Monocytes (%) (Auto) 9.7 % Eosinophils (%) (Auto) 1.7 % Basophils (%) (Auto) 4.8 % Neutrophils # (Auto) 7.9 TH/MM3 Lymphocytes # (Auto) 4.7 TH/MM3 Monocytes # (Auto) 1.5 TH/MM3 Eosinophils # (Auto) 0.3 TH/MM3 Basophils # (Auto) 0.7 TH/MM3 CBC Comment DIFF FINAL Differential Comment Prothrombin Time 11.3 SEC Prothromb Time International Ratio 1.1 RATIO Activated Partial Thromboplast Time 20.1 SEC Blood Urea Nitrogen 21 MG/DL Creatinine 1.80 MG/DL Random Glucose 145 MG/DL Total Protein 7.4 GM/DL Albumin 3.6 GM/DL Calcium Level 10.0 MG/DL Magnesium Level 1.8 MG/DL Alkaline Phosphatase 58 U/L Aspartate Amino Transf (AST/SGOT) 29 U/L Alanine Aminotransferase (ALT/SGPT) 27 U/L Total Bilirubin 0.6 MG/DL Sodium Level 137 MEQ/L Potassium Level 3.4 MEQ/L Chloride Level 101 MEQ/L Carbon Dioxide Level 21.8 MEQ/L Anion Gap 14 MEQ/L Estimat Glomerular Filtration Rate 37 ML/MIN Lactic Acid Level 3.5 mmol/L Troponin I LESS THAN 0.02 NG/ML Lipase 101 U/L [facility] Medical Decision Making Medical Screen Exam Complete: Yes Emergency Medical Condition: Yes Medical Record Reviewed: Yes Interpretation(s) EKG: Normal sinus rhythm rate 78 axis deviation no acute ST elevation or injury pattern or ectopy noted CBC & BMP Diagram 06/27/17 06:10 Total Protein 7.4, Albumin 3.6, Calcium Level 10.0, Magnesium Level 1.8, Alkaline Phosphatase 58, Aspartate Amino Transf (AST/SGOT) 29, Alanine Aminotransferase (ALT/SGPT) 27, Total Bilirubin 0.6 Vital Signs Date Time Temp Pulse Resp B/P (MAP) Pulse Ox O2 Delivery O2 Flow Rate FiO2 06/27/17 07:00 59 16 167/84 (111) 100 Room Air 06/27/17 06:46 18 06/27/17 05:50 98.2 97 16 136/88 (104) 100 Differential Diagnosis Abdominal pain, acute cholecystitis, choledocholithiasis, pancreatitis, colitis , diverticulitis, ischemic colitis, ACS, HI, abdominal aortic aneurysm, dissection Narrative Course Patient placed on business intelligence director IV access obtained specimens collected and sent for resulting patient administered morphine sulfate 3 mg IV along with Zofran 4 mg IV Patient with ongoing abdominal pain Dilaudid 0.5 mg IV administered; patient given Zosyn 4.5 g IV piggyback EKG is sinus rhythm with no acute ST elevation or injury pattern. Rectal exam is Hemoccult negative Care signed over to Dr. Nina De La Paz Point of Care Internal Pos. & Neg. Controls: Passed Fecal Specimen Occult Blood: Negative Diagnosis Primary Impression: Abdominal pain Verona Lock MD Jun 27, 2017 06:11
[2017-06-27] MEDS ORDERED: ONDANSETRON HCL 4 MG/2 ML VIAL IV PUSH ONE (06:15)
[2017-06-27] MEDS ORDERED: SODIUM CHLORIDE 0.9% FLUSH 10 ML FLUSH IV FLUSH PRN ×2 (06:15→12:00)
[2017-06-27] MEDS ORDERED: MORPHINE SULFATE 2 MG/ML SYRINGE IV PUSH ONE (06:15)
[2017-06-27] MEDS ORDERED: ONDANSETRON HCL 4 MG/2 ML VIAL IVP ONE (06:15)
[2017-06-27] MEDS ORDERED: PANTOPRAZOLE SODIUM 40 MG VIAL IV PUSH ONE (06:15)
[2017-06-27 06:28] LABS: AUTOMATED NEUTROPHIL # 7.9 TH/MM3 (1.8-7.7); BASOPHIL # 0.7 TH/MM3 (0-0.2); BASOPHIL % 4.8 % (0.0-2.0); EOSINOPHIL # 0.3 TH/MM3 (0-0.4); EOSINOPHIL % 1.7 % (0.0-4.0); HEMATOCRIT 45.6 % (39.0-51.0); LYMPH % 30.9 % (9.0-44.0); LYMPHOCYTE # 4.7 TH/MM3 (1.0-4.8); MEAN CELL VOLUME 93.5 FL (80.0-100.0); MEAN CORPUSCULAR HEMOGLOBIN 32.8 PG (27.0-34.0); MEAN CORPUSCULAR HGB CONC 35.1 % (32.0-36.0); MEAN PLATELET VOLUME 7.7 FL (7.0-11.0); MONO % 9.7 % (0.0-8.0); MONOCYTE # 1.5 TH/MM3 (0-0.9); NEUT % 52.9 % (16.0-70.0); PLATELET COUNT 202 TH/MM3 (150-450); RED BLOOD COUNT 4.88 MIL/MM3 (4.50-5.90); RED CELL DISTRIBUTION WIDTH 14.8 % (11.6-17.2); WHITE BLOOD COUNT 15.1 TH/MM3 (4.0-11.0)
[2017-06-27] MEDS ORDERED: HYDROmorphone HCL PF 2 MG/ML VIAL IV PUSH ONE (06:30)
[2017-06-27 06:38] LABS: CHLORIDE 101 MEQ/L (98-107); SODIUM (NA) 137 MEQ/L (136-145)
[2017-06-27 06:42] LABS: ALBUMIN 3.6 GM/DL (3.4-5.0); BICARBONATE 21.8 MEQ/L (21.0-32.0); BLOOD UREA NITROGEN 21 MG/DL (7-18); GLUCOSE,RANDOM 145 MG/DL (74-106); MAGNESIUM 1.8 MG/DL (1.5-2.5)
[2017-06-27 06:45] LABS: ALT (GPT) 27 U/L (12-78); AST (GOT) 29 U/L (15-37); GLOMERULAR FILTRATION RATE 37 ML/MIN (>89)
[2017-06-27] MEDS ORDERED: PIPERACIL-TAZO 4.5 GM PREMIX 100 ML IV ONE (06:45)
[2017-06-27 06:46] LABS: TOTAL BILIRUBIN ADULT 0.6 MG/DL (0.2-1.0); TOTAL PROTEIN 7.4 GM/DL (6.4-8.2)
[2017-06-27 06:48] LABS: ALKALINE PHOSPHATASE 58 U/L (45-117); INTERNATIONAL NORMALIZED RATIO 1.1 RATIO; PROTHROMBIN TIME - PATIENT 11.3 SEC (9.8-11.6)
[2017-06-27 06:50] LABS: TROPONIN I LESS THAN 0.02 NG/ML (0.02-0.05)
--- NOTE | 2017-06-27 06:51 | RADRPT ---
EXAM DATE/TIME: 06/27/2017 06:20 [facility] COMPARISON: CHEST SINGLE AP, April 08, 2017, 11:45. INDICATIONS : Shortness of breath. MEDICAL HISTORY : Cardiovascular disease. Myocardial infarction. Hypertension. SURGICAL HISTORY : Coronary artery stent. ENCOUNTER: Initial ACUITY: 2 days PAIN SCORE: 0/10 LOCATION: Bilateral chest FINDINGS: A single view of the chest demonstrates the lungs to be symmetrically aerated without evidence of mas s, infiltrate or effusion. The cardiomediastinal contours are unremarkable. Osseous structures are intact. CONCLUSION: No acute disease. Omar Del Cid MD on June 27, 2017 at 6:49 Board Certified Radiologist. This report was verified electronically.
--- NOTE | 2017-06-27 07:40 | PD ---
HPI Chief Complaint: GI Complaint Time Seen by Provider: 07:24 Travel History International Travel<30 days: No Contact w/Intl Traveler<30days: No Traveled to known affect area: No History of Present Illness HPI 72-year-old male had presented with complaint of abdominal pain. He has had some vomiting and diarrhea. He was seen initially by Dr. Lock was ordered lab work and CT scan. He had colitis several years ago. He has a history of coronary artery disease. He has had bouts of atrial fibrillation in the past. He is not aware of being on blood thinners. On L4 is 1 to see the patient he seemed to have diffuse abdominal tenderness. He was sent for CT scanning. The CT scan shows a 3 mm stone in the proximal ureter with some mild hydronephrosis. His white count is 15,000 urinalysis shows innumerable red cells 9-14 white cells. His lactic acid initially was 3.5. A repeat was done after some fluids and is 0.9. He has been given Zosyn. PFSH Past Medical History Hx Anticoagulant Therapy: Yes Arthritis: Yes Atrial Fibrillation: Yes Autoimmune Disease: No Blood Disorders: No Anxiety: Yes Depression: Yes Heart Rhythm Problems: No Cancer: No Cardiac Catheterization: Yes (stent) Cardiovascular Problems: Yes High Cholesterol: Yes Chemotherapy: No Chest Pain: Yes Congestive Heart Failure: Yes Coronary Artery Disease: Yes Diabetes: Yes Patient Takes Glucophage: Yes Diminished Hearing: Yes (HEARING AIDS) Endocrine: No Gastrointestinal Disorders: No GERD: No Glaucoma: No Genitourinary: Yes Hepatitis: No Hiatal Hernia: No Heparin Induced Thrombocytopen: No Hypertension: Yes Immune Disorder: Yes (RA) Implanted Vascular Access Dvce: No Kidney Stones: No Musculoskeletal: Yes (ARTHRITIS) Neurologic: No Psychiatric: Yes (DEPRESSION/ANXIETY) Reproductive: No Respiratory: No Integumentary: Yes (psoriasis ) Immunizations Current: No Myocardial Infarction: Yes (2006) Radiation Therapy: No Renal Failure: No Thyroid Disease: No Ulcer: No ?: Not Past Surgical History Abdominal Surgery: No AICD: No Appendectomy: No Arteriovenous Shunt: No Body Medical Devices: cardiac stent Cardiac Surgery: Yes (CARDIAC STENTS PLACED 2006) Cholecystectomy: No Coronary Artery Bypass Graft: No Ear Surgery: No Endocrine Surgery: No Eye Surgery: No Genitourinary Surgery: No Insulin Pump: No Joint Replacement: No Neurologic Surgery: No Oral Surgery: No Pacemaker: No Thoracic Surgery: No Other Surgery: Yes (throat 1964 sliced) Family History Family Myocardial Infarction: Yes (FATHER) Social History Alcohol Use: Yes (OCCASSIONAL GLASS WINE) Tobacco Use: No Substance Use: Yes (pot nightly) Allergies-Medications (Allergen,Severity, Reaction): Coded Allergies: atropine (Verified Allergy, Severe, HIVES, 06/27/17) diphenoxylate (Verified Allergy, Severe, HIVES, 06/27/17) loperamide (Verified Allergy, Severe, DOES NOT REMEMBER, 06/27/17) Reported Meds & Prescriptions Reported Meds & Active Scripts Active Proventil Hfa 6.7 GM Inh (Albuterol Sulfate) 90 Mcg/Act Aer 2 Puff INH Q6H PRN Sucralfate 1 Gm Tab 1 Gm PO TID on empty stomach Ranitidine (Ranitidine HCl) 150 Mg Tab 150 Mg PO BID Reported Omeprazole 20 Mg Tab 20 Mg PO DAILY Trazodone (Trazodone HCl) 150 Mg Tab 150 Mg PO HS Simponi Inj (Golimumab) 50 Mg/0.5 Ml Syr 50 Mg SQ Q30D Protonix (Pantoprazole Sodium) 40 Mg Tab 40 Mg PO DAILY Provigil (Modafinil) 200 Mg Tab 200 Mg PO DAILY Methotrexate 2.5 Mg Tab 2.5 Mg PO Q7D Gabapentin 300 Mg Cap 300 Mg PO TID Cardizem CD 24 HR (Diltiazem CD 24 HR) 180 Mg Caper 180 Mg PO HS Wellbutrin SR 12 HR (Bupropion HCl) 150 Mg Tab 150 Mg PO HS Lipitor (Atorvastatin Calcium) 10 Mg Tab 10 Mg PO HS Review of Systems Except as stated in HPI: all other systems reviewed are Neg Gastrointestinal: Positive: Nausea, Vomiting, Abdominal Pain Physical Exam Narrative GENERAL: Thin male SKIN: Focused skin assessment warm/dry. HEAD: Atraumatic. Normocephalic. EYES: Pupils equal and round. No scleral icterus. No injection or drainage. ENT: No nasal bleeding or discharge. Mucous membranes pink and moist. NECK: Trachea midline. No JVD. CARDIOVASCULAR: Regular rate and rhythm. No murmur appreciated. RESPIRATORY: No accessory muscle use. Clear to auscultation. Breath sounds equal bilaterally. GASTROINTESTINAL: Abdomen soft, mild diffuse tenderness, nondistended. Hepatic and splenic margins not palpable. MUSCULOSKELETAL: No obvious deformities. No clubbing. No cyanosis. No edema. NEUROLOGICAL: Awake and alert. No obvious cranial nerve deficits. Motor grossly within normal limits. Normal speech. PSYCHIATRIC: Appropriate mood and affect; insight and judgment limited Data Data Last Documented VS Vital Signs Date Time Temp Pulse Resp B/P (MAP) Pulse Ox O2 Delivery O2 Flow Rate FiO2 06/27/17 09:51 85 16 114/75 (88) 97 Room Air 06/27/17 05:50 98.2 Orders Orders Complete Blood Count With Diff (06/27/17 06:02) Comprehensive Metabolic Panel (06/27/17 06:02) Lipase (06/27/17 06:02) Lactic Acid (06/27/17 06:02) Prothrombin Time / Inr (Pt) (06/27/17 06:02) Act Partial Throm Time (Ptt) (06/27/17 06:02) Urinalysis - C+S If Indicated (06/27/17 06:02) Iv Access Insert/Monitor (06/27/17 06:02) Ecg Monitoring (06/27/17 06:02) Oximetry (06/27/17 06:02) Ondansetron Inj (Zofran Inj) (06/27/17 06:15) Sodium Chlor 0.9% 1000 Ml Inj (Ns 1000 M (06/27/17 06:02) Sodium Chloride 0.9% Flush (Ns Flush) (06/27/17 06:15) Electrocardiogram (06/27/17 06:02) Chest, Single Ap (06/27/17 06:02) Ondansetron Inj (Zofran Inj) (06/27/17 06:15) Morphine Inj (Morphine Inj) (06/27/17 06:15) Pantoprazole Inj (Protonix Inj) (06/27/17 06:15) Troponin I (06/27/17 06:02) Magnesium (Mg) (06/27/17 06:02) Hydromorphone Pf Inj (Dilaudid Pf Inj) (06/27/17 06:30) Piperacil-Tazo 4.5 Gm Premix (Zosyn 4.5 (06/27/17 06:45) Cta Abd/Pel W Iv Contrast W 3d (06/27/17 ) Sodium Chlorid 0.9% 500 Ml Inj (Ns 500 M (06/27/17 07:45) Potassium Chlor 20 Meq Premix (Kcl 20 Me (06/27/17 07:45) Iodixanol 320 Inj (Rad Ct) (Visipaque 32 (06/27/17 08:30) Urine Culture (06/27/17 09:23) Lactic Acid (06/27/17 10:18) Admit Order (Ed Use Only) (06/27/17 11:51) Place In Observation (06/27/17 ) Vital Signs (Adult) Q4H (06/27/17 11:51) Activity Oob Ad Marlena (06/27/17 11:51) Intake + Output MINGO.QSHIFT (06/27/17 11:51) Diet Heart Healthy (06/27/17 Lunch) Sodium Chloride 0.9% Flush (Ns Flush) (06/27/17 12:00) Sodium Chloride 0.9% Flush (Ns Flush) (06/27/17 21:00) Ondansetron Inj (Zofran Inj) (06/27/17 12:00) Basic Metabolic Panel (Bmp) (06/28/17 06:00) Complete Blood Count With Diff (06/28/17 06:00) Naloxone Inj (Narcan Inj) (06/27/17 12:00) Docusate Sodium-Senna (Grazyna-Colace) (06/27/17 21:00) Magnesium Hydroxide Liq (Milk Of Magnesi (06/27/17 12:00) Sennosides (Senokot) (06/27/17 12:00) Bisacodyl Supp (Dulcolax Supp) (06/27/17 12:00) Lactulose Liq (Lactulose Liq) (06/27/17 12:00) Labs Laboratory Tests Test 06/27/17 06:10 06/27/17 09:23 06/27/17 10:38 White Blood Count 15.1 TH/MM3 Red Blood Count 4.88 MIL/MM3 Hemoglobin 16.0 GM/DL Hematocrit 45.6 % Mean Corpuscular Volume 93.5 FL Mean Corpuscular Hemoglobin 32.8 PG Mean Corpuscular Hemoglobin Concent 35.1 % Red Cell Distribution Width 14.8 % Platelet Count 202 TH/MM3 Mean Platelet Volume 7.7 FL Neutrophils (%) (Auto) 52.9 % Lymphocytes (%) (Auto) 30.9 % Monocytes (%) (Auto) 9.7 % Eosinophils (%) (Auto) 1.7 % Basophils (%) (Auto) 4.8 % Neutrophils # (Auto) 7.9 TH/MM3 Lymphocytes # (Auto) 4.7 TH/MM3 Monocytes # (Auto) 1.5 TH/MM3 Eosinophils # (Auto) 0.3 TH/MM3 Basophils # (Auto) 0.7 TH/MM3 CBC Comment DIFF FINAL Differential Comment Prothrombin Time 11.3 SEC Prothromb Time International Ratio 1.1 RATIO Activated Partial Thromboplast Time 20.1 SEC Blood Urea Nitrogen 21 MG/DL Creatinine 1.80 MG/DL Random Glucose 145 MG/DL Total Protein 7.4 GM/DL Albumin 3.6 GM/DL Calcium Level 10.0 MG/DL Magnesium Level 1.8 MG/DL Alkaline Phosphatase 58 U/L Aspartate Amino Transf (AST/SGOT) 29 U/L Alanine Aminotransferase (ALT/SGPT) 27 U/L Total Bilirubin 0.6 MG/DL Sodium Level 137 MEQ/L Potassium Level 3.4 MEQ/L Chloride Level 101 MEQ/L Carbon Dioxide Level 21.8 MEQ/L Anion Gap 14 MEQ/L Estimat Glomerular Filtration Rate 37 ML/MIN Lactic Acid Level 3.5 mmol/L 0.9 mmol/L Troponin I LESS THAN 0.02 NG/ML Lipase 101 U/L Urine Color YELLOW Urine Turbidity SL CLOUDY Urine pH 6.0 Urine Specific [place] 1.020 Urine Protein TRACE mg/dL Urine Glucose (UA) NEG mg/dL Urine Ketones 80 OR GREATER mg/dL Urine Occult Blood LARGE Urine Nitrite NEG Urine Bilirubin NEG Urine Urobilinogen 0.2 MG/DL Urine Leukocyte Esterase NEG Urine RBC INNUM /hpf Urine WBC 9-14 /hpf Urine Bacteria MOD /hpf Urine Mucus FEW /lpf Microscopic Urinalysis Comment CULTURE INDICATED MDM Medical Decision Making Medical Screen Exam Complete: Yes Emergency Medical Condition: Yes Medical Record Reviewed: Yes Differential Diagnosis Differential includes acute abdomen, renal colic, UTI Narrative Course On reevaluate 11:00 the patient says he feels much better. He alert. His abdomen is soft nontender. Workup has revealed a urinary tract infection and a small ureteral stone. His lactic acid is gone from 3.5-0.9. He will be put in observation Diagnosis Primary Impression: Abdominal pain Additional Impressions: Renal colic on left side UTI (urinary tract infection) Admitting Information Admitting Physician Requests: Observation Emilio Reich MD Jun 27, 2017 07:40
[2017-06-27] MEDS ORDERED: SODIUM CHLORID 0.9% 500 ML INJ 500 ML IV ONE (07:45)
[2017-06-27] MEDS: POTASSIUM CHLOR 20 MEQ PREMIX 100 ML IV SCH ×2 (07:55→10:00)
[2017-06-27] MEDS ORDERED: IODIXANOL 320 MG/ML 10 ML VIAL (for Rad CT) IVCONTRAST ONE (08:30)
[2017-06-27] MEDS ORDERED: METFORMIN HOLD POST IV CONTRAST SCH ×2 (08:35)
[2017-06-27 09:43] LABS: BLOOD, URINE LARGE (NEG); GLUCOSE,URINE NEG (NEG); KETONE, URINE 80 OR GREATER mg/dL (NEG); NITRITE,URINE NEG (NEG); URINE COLOR YELLOW (YELLW/STRAW); URINE LEUKOCYTE ESTERASE NEG (NEG)
[2017-06-27 09:46] LABS: BILIRUBIN, URINE NEG (NEG)
[2017-06-27 09:50] LABS: MUCUS URINE FEW /lpf (OCC); RBC, URINE INNUM /hpf (0-3)
[2017-06-27 09:51] LABS: BACTERIA, URINE MOD /hpf
--- NOTE | 2017-06-27 10:12 | RADRPT ---
EXAM DATE/TIME: 06/27/2017 08:31 [facility] COMPARISON: CT ABDOMEN & PELVIS W CONTRAST, August 03, 2016, 11:29. INDICATIONS : Diffuse abdominal pain. Evaluate for ischemic bowel. IV CONTRAST: 50 cc Visipaque (iodixanol) IV ORAL CONTRAST: No oral contrast ingested. RADIATION DOSE: 18.47 CTDIvol (mGy) MEDICAL HISTORY : Cardiovascular disease. Hypertension. Congestive heart failure.Diabetes. SURGICAL HISTORY : Coronary artery stent. ENCOUNTER: Initial ACUITY: 1 day PAIN SCALE: 8/10 LOCATION: pelvis abdomen TECHNIQUE: Volumetric scanning was performed using a multi-row detector CT scanner. The data was post processed with a variety of visualization algorithms including full volume maximum intensity projection, multi -planar sliding thin slab reformation, curved planar reformation, and surface rendering techniques. Using automated exposure control and adjustment of the mA and/or kV according to patient size, radiat ion dose was kept as low as reasonably achievable to obtain optimal diagnostic quality images. DICOM format image data is available electronically for review and comparison. FINDINGS: AORTA: The abdominal aorta is normal in caliber with mild infrarenal aortic calcifications. No dissection. VISCERAL ARTERIES: Celiac is patent. Mild stenosis of the SMA origin secondary to bulky calcified plaque. [place] is patent. Single left renal artery. Duplicated right renal arteries. Mild stenosis of the left renal artery or igin secondary to calcified plaque. Right renal arteries are patent. ILIAC ARTERIES: No significant iliac stenosis. Visualized femoral arteries are patent. GENERAL FINDINGS: Visualized lung bases are clear. Evaluation of the abdominal viscera is limited due to arterial phase technique. Redemonstration of small subcentimeter hypodense lesions in the liver which are too small to fully characterize. Liver is otherwise unremarkable without evidence for volume loss. The spleen, adrenal glands, gallbladder, and pancreas are grossly unremarkable. Redemonstration of a hypodense c ystic lesion in the inferior pole of the left kidney which is questionably enlarged since previous ex am measuring approximately 4.0 x 4.0 cm compared to 4.1 x 3.7 cm on prior exam. Additionally, the den sity is now indeterminate. There is significant motion through this region and this may reflect motio n artifact. There are 3 separate 4 mm nonobstructing calyceal calculi in the right kidney. 3 mm proxi mal left ureteral calculus with mild left-sided hydronephrosis and perinephric stranding. Redemonstra tion of sigmoid and scattered colonic diverticula. Stable densely calcified mesenteric masses near th e sigmoid colon likely reflecting sequela of prior infection or hematoma. No significant free fluid o r drainable fluid collection. Bladder is mildly distended but otherwise unremarkable. Prostate is nonspecifically enlarged. Small f at containing bilaterally were hernias. Degenerative changes of the lumbar spine. CONCLUSION: 1. No evidence for mesenteric artery stenosis as questioned. 2. 3 mm partially obstructing left proximal ureteral calculus with mild left-sided hydronephrosis. 3. There are at least 3 nonobstructing calyceal renal calculi on the right. 4. Questionably enlarged 4 cm left inferior pole cyst with increased now indeterminate density. This may reflect motion artifact or sequela of hydronephrosis. Consider followup examination with ultrasou nd in approximately 6 months as clinically warranted. 5. Stable ancillary findings, as above. Darron Stanley MD on June 27, 2017 at 9:25 Board Certified Radiologist. This report was verified electronically.
[2017-06-27] MEDS ORDERED: MAGNESIUM HYDROXIDE SUSP 30 ML CUP PO PRN (12:00)
[2017-06-27] MEDS ORDERED: NALOXONE HCL 0.4 MG/ML AMP IV PUSH PRN (12:00)
[2017-06-27] MEDS ORDERED: LACTULOSE SYRUP 20 GM/30 ML CUP PO PRN (12:00)
[2017-06-27] MEDS ORDERED: BISACODYL 10 MG SUPP RECTAL PRN (12:00)
[2017-06-27] MEDS ORDERED: SENNOSIDES 8.6 MG TAB PO PRN (12:00)
[2017-06-27] MEDS ORDERED: ONDANSETRON HCL 4 MG/2 ML VIAL IVP PRN (13:00)
[2017-06-27] MEDS ORDERED: ACETAMINOPHEN/HYDROcodone 325 MG/5 MG TAB PO PRN (19:15)
[2017-06-27] MEDS ORDERED: ACETAMINOPHEN/HYDROcodone 325 MG/7.5 MG TAB PO PRN (19:15)
--- NOTE | 2017-06-27 20:15 | EKG ---
Date Performed: 06/27/2017 Time Performed: 06:37:08 PTAGE: 72 years EKG: Sinus rhythm MARKED LEFT AXIS DEVIATION NONSPECIFIC T-WAVE ABNORMALITY ABNORMAL ECG Compared to prior electrocard iogram, Premature atrial contraction no longer present. PREVIOUS TRACING : 04/08/2017 12.17 DOCTOR: Jelani Hernandez Interpretating Date/Time 06/27/2017 20:14:28
[2017-06-27] MEDS: SODIUM CHLORIDE 0.9% FLUSH 10 ML FLUSH IV FLUSH SCH (20:27)
[2017-06-27] MEDS: DOCUSATE SODIUM 50 MG/SENNA 8.6 MG TAB PO SCH (20:27)
[2017-06-28] VITALS: BP 130/79; PULSE 99; RESP 18; TEMP 97.5; O2SAT 96
[2017-06-28 07:44] LABS: AUTOMATED NEUTROPHIL # 2.9 TH/MM3 (1.8-7.7); BASOPHIL # 0.1 TH/MM3 (0-0.2); BASOPHIL % 1.6 % (0.0-2.0); EOSINOPHIL # 0.3 TH/MM3 (0-0.4); EOSINOPHIL % 4.7 % (0.0-4.0); HEMOGLOBIN 13.2 GM/DL (13.0-17.0); LYMPH % 42.3 % (9.0-44.0); MEAN CELL VOLUME 95.4 FL (80.0-100.0); MEAN CORPUSCULAR HEMOGLOBIN 31.5 PG (27.0-34.0); MEAN PLATELET VOLUME 8.1 FL (7.0-11.0); MONO % 10.9 % (0.0-8.0); MONOCYTE # 0.8 TH/MM3 (0-0.9); NEUT % 40.5 % (16.0-70.0); PLATELET COUNT 155 TH/MM3 (150-450); RED CELL DISTRIBUTION WIDTH 14.4 % (11.6-17.2); WHITE BLOOD COUNT 7.1 TH/MM3 (4.0-11.0)
[2017-06-28 08:00] VITALS: BP 142/94; PULSE 74; RESP 16; TEMP 97.1; O2SAT 95
[2017-06-28 08:22] LABS: BICARBONATE 25.4 MEQ/L (21.0-32.0); CALCIUM 9.2 MG/DL (8.5-10.1); CREATININE 1.5 MG/DL (0.60-1.30)
--- NOTE | 2017-06-28 08:39 | HHI.HP ---
HPI Service [facility] Primary Care Physician Papo Jacobson MD Admission Diagnosis UTI Diagnoses: Chief Complaint: Nausea vomiting Travel History International Travel<30 Days: No Contact w/Intl Traveler <30 Da: No Traveled to Known Affected Are: No History of Present Illness 72-year-old white male being admitted for sepsis secondary to complicated urinary tract infection. Patient was in his usual state of health until a few days ago he began experiencing nausea vomiting and diarrhea. This was associated with diffuse abdominal pain. Says the vomiting diarrhea were nonbloody. Says his vomiting eventually became bilious. Reports feeling fevers and chills at home. Due to persistence of his symptoms, he decided come to the emergency department. He was noted to be very poor historian with initial emergency room physician moaning in pain. CT scan showed a 3 mm partially obstructing left-sided ureteral stone. Urine analysis was very suspicious for urinary tract infection. Heart rate was in the 90s and initial lactic acid was 3.5. He was given IV fluids and started on antibiotics. Review of Systems Except as stated in HPI: all other systems reviewed are Neg Past Family Social History Past Medical History CAD, rheumatoid arthritis, psoriasis, hearing loss, depression/anxiety Allergies: Coded Allergies: atropine (Verified Allergy, Severe, HIVES, 06/27/17) diphenoxylate (Verified Allergy, Severe, HIVES, 06/27/17) loperamide (Verified Allergy, Severe, DOES NOT REMEMBER, 06/27/17) Family History HTN Social History lifelong hx of smoking; Physical Exam Vital Signs Vital Signs Date Time Temp Pulse Resp B/P (MAP) Pulse Ox O2 Delivery O2 Flow Rate FiO2 06/28/17 00:00 97.5 99 18 130/79 (96) 96 06/27/17 20:00 97.6 115 19 134/81 (98) 96 06/27/17 16:00 96.7 69 18 126/75 (92) 95 06/27/17 12:45 96.8 83 19 145/67 (93) 96 06/27/17 12:45 96.8 83 18 145/67 (93) 96 06/27/17 12:38 06/27/17 12:02 75 18 115/71 (86) 97 Room Air 06/27/17 09:51 85 16 114/75 (88) 97 Room Air Physical Exam VS: afebrile GENERAL: NAD SKIN: Warm and dry. EYES: No scleral icterus. No injection or drainage. ENT: No nasal bleeding or discharge. Mucous membranes pink and moist. CARDIOVASCULAR: Regular rate and rhythm. no murmurs RESPIRATORY: No accessory muscle use. Clear to auscultation. Breath sounds equal bilaterally. GASTROINTESTINAL: Abdomen soft, non-tender, nondistended. Extremities: No clubbing, cyanosis, or edema. No obvious deformities. : No CVA Tenderness to percussion BL MUSCULOSKELETAL: adequate muscle bulk and tone for age and habitus NEUROLOGICAL: Awake and alert. No obvious cranial nerve deficits. No facial droop nor slurred speech noted. PSYCHIATRIC: Appropriate mood and affect; insight and judgment normal. Laboratory Laboratory Tests Test 06/27/17 09:23 06/27/17 10:38 06/28/17 05:40 Urine Color YELLOW Urine Turbidity SL CLOUDY Urine pH 6.0 Urine Specific [place] 1.020 Urine Protein TRACE Urine Glucose (UA) NEG Urine Ketones 80 OR GREATER Urine Occult Blood LARGE Urine Nitrite NEG Urine Bilirubin NEG Urine Urobilinogen 0.2 Urine Leukocyte Esterase NEG Urine RBC INNUM Urine WBC 9-14 Urine Bacteria MOD Urine Mucus FEW Microscopic Urinalysis Comment CULTURE INDICATED Lactic Acid Level 0.9 White Blood Count 7.1 Red Blood Count 4.20 Hemoglobin 13.2 Hematocrit 40.0 Mean Corpuscular Volume 95.4 Mean Corpuscular Hemoglobin 31.5 Mean Corpuscular Hemoglobin Concent 33.0 Red Cell Distribution Width 14.4 Platelet Count 155 Mean Platelet Volume 8.1 Neutrophils (%) (Auto) 40.5 Lymphocytes (%) (Auto) 42.3 Monocytes (%) (Auto) 10.9 Eosinophils (%) (Auto) 4.7 Basophils (%) (Auto) 1.6 Neutrophils # (Auto) 2.9 Lymphocytes # (Auto) 3.0 Monocytes # (Auto) 0.8 Eosinophils # (Auto) 0.3 Basophils # (Auto) 0.1 CBC Comment DIFF FINAL Differential Comment Blood Urea Nitrogen 19 Creatinine 1.50 Random Glucose 80 Calcium Level 9.2 Sodium Level 141 Potassium Level 3.4 Chloride Level 107 Carbon Dioxide Level 25.4 Anion Gap 9 Estimat Glomerular Filtration Rate 46 Date/Time Source Procedure Growth Status 06/27/17 09:23 Urine Clean Catch Urine Culture Pending Received Result Diagram: 06/27/17 0610 06/28/17 0540 Imaging Last Impressions Chest X-Ray 06/27/17 0602 Signed Impressions: Service Date/Time: Tuesday, June 27, 2017 06:20 - CONCLUSION: No acute disease. Omar Del Cid MD Abdomen/Pelvis CT 06/27/17 0000 Signed Impressions: Service Date/Time: Tuesday, June 27, 2017 08:31 - CONCLUSION: 1. No evidence for mesenteric artery stenosis as questioned. 2. 3 mm partially obstructing left proximal ureteral calculus with mild left-sided hydronephrosis. 3. There are at least 3 nonobstructing calyceal renal calculi on the right. 4. Questionably enlarged 4 cm left inferior pole cyst with increased now indeterminate density. This may reflect motion artifact or sequela of hydronephrosis. Consider followup examination with ultrasound in approximately 6 months as clinically warranted. 5. Stable ancillary findings, as above. Darron Stanley MD [place] VTE Risk Assessment Caprini VTE Risk Assessment: Mod/High Risk (score >= 2) Caprini Risk Assessment Model Point Value = 1 Point Value = 2 Point Value = 3 Point Value = 5 Age 41-60 Minor surgery BMI > 25 kg/m2 Swollen legs Varicose veins or History of unexplained or recurrent spontaneous Oral contraceptives or hormone replacement Sepsis (< 1 month) Serious lung disease, including pneumonia (< 1 month) Abnormal pulmonary function Acute myocardial infarction Congestive heart failure (< 1 month) History of inflammatory bowel disease Medical patient at bed rest Age 61-74 Arthroscopic surgery Major open surgery (> 45 min) Laparoscopic surgery (> 45 min) Malignancy Confined to bed (> 72 hours) Immobilizing plaster cast Central venous access Age >= 75 History of VTE Family history of VTE Factor V Leiden Prothrombin [id number] Lupus anticoagulant Anticardiolipin antibodies Elevated serum homocysteine Heparin-induced thrombocytopenia Other congenital or acquired thrombophilia Stroke (< 1 month) Elective arthroplasty Hip, pelvis, or leg fracture Acute spinal cord injury (< 1 month) Prophylaxis Regimen Total Risk Factor Score Risk Level Prophylaxis Regimen 0-1 Low Early ambulation 2 Moderate Order ONE of the following: *Sequential Compression Device (SCD) *Heparin 5000 units SQ BID 3-4 Higher Order ONE of the following medications: *Heparin 5000 units SQ TID *Enoxaparin/Lovenox 40 mg SQ daily (WT < 150 kg, CrCl > 30 mL/min) *Enoxaparin/Lovenox 30 mg SQ daily (WT < 150 kg, CrCl > 10-29 mL/min) *Enoxaparin/Lovenox 30 mg SQ BID (WT < 150 kg, CrCl > 30 mL/min) AND/OR *Sequential Compression Device (SCD) 5 or more Highest Order ONE of the following medications: *Heparin 5000 units SQ TID (Preferred with Epidurals) *Enoxaparin/Lovenox 40 mg SQ daily (WT < 150 kg, CrCl > 30 mL/min) *Enoxaparin/Lovenox 30 mg SQ daily (WT < 150 kg, CrCl > 10-29 mL/min) *Enoxaparin/Lovenox 30 mg SQ BID (WT < 150 kg, CrCl > 30 mL/min) AND *Sequential Compression Device (SCD) Assessment and Plan Problem List: (1) Renal colic on left side ICD Code: N23 - Unspecified renal colic Status: Acute Assessment and Plan Sepsis secondary to complicated urinary tract infection likely secondary to kidney stone Sepsis -Blood cultures were not drawn, white count was 15 upon admission, given IV fluids, lactic acid significantly improved -Urine cultures pending; no point in drawing bc's at this point given pt has been on abx for > 18 hrs. Abdominal pain -Likely multifactorial from viral gastroenteritis as well as complicated UTI, and apparently reviewed the CT scan and see no substantial stool retention. Radiology read indicates multiple renal stones, most of which are nonobstructing ; the largest is partially obstructing on the left side at 3 mm. left partially obstructing renal stone - Will add Flomax, expected to pass, strain urine Suspected complicated UTI -May be associated with renal stone, given zosyn in ED, transitioned to rocephin yesterday, will keep patient in-house until cultures result to ensure no ESBL is growing Viral gastroenteritis -Significantly improved, supportive care Nausea/vomiting -Multifactorial in etiology from viral gastroenteritis and UTI, improved, supportive care MAXINE - 2/2 dehydration, IVFs Lovenox Physician Certification 2 Midnight Certification Type: Admission for Inpatient Services Order for Inpatient Services The services are ordered in accordance with Medicare regulations or non- Medicare payer requirements, as applicable. In the case of services not specified as inpatient-only, they are appropriately provided as inpatient services in accordance with the 2-midnight benchmark. Estimated LOS (days): 2 2 days is the estimated time the patient will need to remain in the hospital, assuming treatment plan goals are met and no additional complications. Post-Hospital Plan: Home Eloy Llanos MD Jun 28, 2017 08:39
[2017-06-28] MEDS ORDERED: ALBUTEROL SULFATE 90 MCG/ACT HFA 8 GM INHALER INH PRN (08:45)
[2017-06-28] MEDS: FAMOTIDINE 20 MG TAB PO SCH ×2 (08:59→21:16)
[2017-06-28] MEDS: SUCRALFATE 1 GM TAB PO SCH ×3 (08:59→17:13)
[2017-06-28] MEDS: GABAPENTIN 300 MG CAP PO SCH ×3 (08:59→17:13)
[2017-06-28] MEDS: PANTOPRAZOLE SOD 40 MG DELAYED RELEASE TAB PO SCH (08:59)
[2017-06-28] MEDS: ENOXAPARIN SODIUM 30 MG/0.3 ML SYRINGE SQ SCH (09:00)
[2017-06-28] MEDS: DOCUSATE SODIUM 50 MG/SENNA 8.6 MG TAB PO SCH ×2 (09:00→21:15)
[2017-06-28] MEDS: cefTRIAXone INJ 1,000 MG in SODIUM CHLORIDE 0.9% INJ 100 ML IV SCH (09:00)
[2017-06-28] MEDS: SODIUM CHLORIDE 0.9% FLUSH 10 ML FLUSH IV FLUSH SCH ×2 (09:01→21:16)
[2017-06-28 12:00] VITALS: BP 114/76; PULSE 79; RESP 16; TEMP 97.6; O2SAT 97
[2017-06-28] MEDS: MODAFINIL 200 MG TAB PO SCH (12:29)
[2017-06-28 16:00] VITALS: BP 120/80; PULSE 72; RESP 16; TEMP 97.6; O2SAT 96
[2017-06-28 20:00] VITALS: BP 109/69; PULSE 76; RESP 18; TEMP 97.2; O2SAT 92
[2017-06-28] MEDS ORDERED: TAMSULOSIN HCL 0.4 MG CAP PO SCH (21:00)
[2017-06-28] MEDS ORDERED: traZODone HCL 50 MG TAB PO SCH (21:00)
[2017-06-28] MEDS ORDERED: DILTIAZEM-CD 180 MG CAP ER PO SCH (21:00)
[2017-06-28] MEDS ORDERED: buPROPion HCL 150 MG SUSTAINED RELEASE TAB PO SCH (21:00)
[2017-06-28] MEDS ORDERED: ATORVASTATIN 10 MG TAB PO SCH (21:00)
[2017-06-29] VITALS: BP 111/71; PULSE 73; RESP 20; TEMP 96.9; O2SAT 93
[2017-06-29 04:00] VITALS: BP 116/72; PULSE 72; RESP 20; TEMP 96.5; O2SAT 96
[2017-06-29 07:50] VITALS: BP 105/60; PULSE 73; RESP 20; TEMP 97.4; O2SAT 94
[2017-06-29] MEDS: PANTOPRAZOLE SOD 40 MG DELAYED RELEASE TAB PO SCH (08:24)
[2017-06-29] MEDS: SODIUM CHLORIDE 0.9% FLUSH 10 ML FLUSH IV FLUSH SCH (08:24)
[2017-06-29] MEDS: FAMOTIDINE 20 MG TAB PO SCH (08:24)
[2017-06-29] MEDS: cefTRIAXone INJ 1,000 MG in SODIUM CHLORIDE 0.9% INJ 100 ML IV SCH (08:24)
[2017-06-29] MEDS: MODAFINIL 200 MG TAB PO SCH (08:24)
[2017-06-29] MEDS: SUCRALFATE 1 GM TAB PO SCH ×2 (08:24→12:38)
[2017-06-29] MEDS: GABAPENTIN 300 MG CAP PO SCH ×2 (08:24→12:38)
[2017-06-29] MEDS: DOCUSATE SODIUM 50 MG/SENNA 8.6 MG TAB PO SCH (08:25)
[2017-06-29] MEDS: ENOXAPARIN SODIUM 30 MG/0.3 ML SYRINGE SQ SCH (08:25)
[2017-06-29 08:33] LABS: CALCIUM 9.5 MG/DL (8.5-10.1)
[2017-06-29 08:37] LABS: CREATININE 1.4 MG/DL (0.60-1.30)
--- NOTE | 2017-06-29 10:13 | HHI.DCPOC ---
Discharge Care Plan Diagnosis: (1) Renal colic on left side (2) Left ureteral stone Goals to Promote Your Health * To prevent worsening of your condition and complications * To maintain your health at the optimal level Directions to Meet Your Goals Take your medications as prescribed Follow your dietary instruction Follow activity as directed Keep your appointments as scheduled Take your immunizations and boosters as scheduled If your symptoms worsen call your PCP, if no PCP go to Urgent Care Center or Emergency Room Smoking is Dangerous to Your Health. Avoid second hand smoke Call the 24-hour hour crisis hotline for domestic abuse at Eloy Llanos MD Jun 29, 2017 10:13
[2017-06-29] MEDS ORDERED: LACTATED RINGER'S 1000 ML IV PRN (10:30)
[2017-06-29] MEDS ORDERED: CHLORHEXIDINE GLUCONATE 2 % 1 PACK (2 CLOTHS) TOPICAL PRN (10:30)
[2017-06-29] MEDS ORDERED: SODIUM CHLORID 0.9% 500 ML IV PRN (10:30)
[2017-06-29] MEDS ORDERED: POVIDONE IODINE 5% (ANTISEPSIS KIT) 4 APPLICATIONS EACH NARE PRN (10:30)
[2017-06-29] MEDS ORDERED: METOPROLOL TARTRATE 25 MG TAB PO PRN (10:30)
[2017-06-29] MEDS ORDERED: TAMS0.4C4 PO (10:41)
[2017-06-29] MEDS ORDERED: ONDA4TAB7 SL (10:42)
--- NOTE | 2017-06-29 12:52 | HHI.FF ---
Face to Face Verification Diagnosis: (1) Psoriatic arthritis (2) Left ureteral stone Home Health Nursing Order: Signs/symptoms of disease process Nursing assessment with vital signs I have seen patient Rahul Dixon on 06/29/17. My clinical findings support the need for the requested home health care services because: Ltd mobility - disease progression I certify that my clinical findings support that this patient is homebound because: Need for psychosocial assistance Eloy Llanos MD Jun 29, 2017 12:52
--- NOTE | 2017-06-29 12:59 | HHI.DS ---
Discharge Summary Admission Date Jun 28, 2017 at 08:33 Discharge Date: Jun 29, 2017 Admitting Diagnosis UTI (1) Renal colic on left side ICD Code: N23 - Unspecified renal colic Status: Acute (2) Left ureteral stone ICD Code: N20.1 - Calculus of ureter Procedures none Brief History - From Admission 72-year-old white male being admitted for sepsis secondary to complicated urinary tract infection. Patient was in his usual state of health until a few days ago he began experiencing nausea vomiting and diarrhea. This was associated with diffuse abdominal pain. Says the vomiting diarrhea were nonbloody. Says his vomiting eventually became bilious. Reports feeling fevers and chills at home. Due to persistence of his symptoms, he decided come to the emergency department. He was noted to be very poor historian with initial emergency room physician moaning in pain. CT scan showed a 3 mm partially obstructing left-sided ureteral stone. Urine analysis was very suspicious for urinary tract infection. Heart rate was in the 90s and initial lactic acid was 3.5. He was given IV fluids and started on antibiotics. CBC/BMP: 06/28/17 0540 06/29/17 0810 Significant Findings Laboratory Tests Test 06/27/17 06:10 06/27/17 09:23 06/27/17 10:38 06/28/17 05:40 White Blood Count 15.1 TH/MM3 (4.0-11.0) Monocytes (%) (Auto) 9.7 % (0.0-8.0) 10.9 % (0.0-8.0) Basophils (%) (Auto) 4.8 % (0.0-2.0) Neutrophils # (Auto) 7.9 TH/MM3 (1.8-7.7) Monocytes # (Auto) 1.5 TH/MM3 (0-0.9) Basophils # (Auto) 0.7 TH/MM3 (0-0.2) Activated Partial Thromboplast Time 20.1 SEC (24.3-30.1) Blood Urea Nitrogen 21 MG/DL (7-18) 19 MG/DL (7-18) Creatinine 1.80 MG/DL (0.60-1.30) 1.50 MG/DL (0.60-1.30) Random Glucose 145 MG/DL (74-106) Potassium Level 3.4 MEQ/L (3.5-5.1) 3.4 MEQ/L (3.5-5.1) Estimat Glomerular Filtration Rate 37 ML/MIN (>89) 46 ML/MIN (>89) Lactic Acid Level 3.5 mmol/L (0.4-2.0) Troponin I LESS THAN 0.02 NG/ML Urine Ketones 80 OR GREATER mg/dL (NEG) Urine Occult Blood LARGE (NEG) Urine RBC INNUM /hpf (0-3) Urine WBC 9-14 /hpf (0-5) Urine Bacteria MOD /hpf (NONE) Urine Mucus FEW /lpf (OCC) Red Blood Count 4.20 MIL/MM3 (4.50-5.90) Eosinophils (%) (Auto) 4.7 % (0.0-4.0) Test 06/29/17 08:10 Creatinine 1.40 MG/DL (0.60-1.30) Potassium Level 3.3 MEQ/L (3.5-5.1) Estimat Glomerular Filtration Rate 50 ML/MIN (>89) PE at Discharge No left-sided CVA tenderness to percussion Sitting up in bed, no acute distress, awake, alert Mild left pectoral tenderness to palpation which the patient affirms was his chest pain today Hospital Course Patient was admitted, started on IV antibiotics and IV fluids. His nausea and vomiting resolved. his urine culture ultimately grew nothing and he remained afebrile. Patient was tolerating p.o. intake well. Patient did have some intermittent delirium that self resolved during the daytime. patient did not notice passing his kidney stone. Patient was alert and oriented 3 on his days discharged wanting to go home on his day of discharge. He did develop some musculoskeletal tenderness over the left pectoral region which was addressed with a lidocaine patch. He was counseled to avoid NSAIDs due to his impaired kidney function and to aggressively hydrate himself and to have his primary care provider recheck his kidney function. Was counseled extensively on aggressive hydration. Patient has met maximal benefit from hospitalization is clinically stable for discharge. Pt Condition on Discharge: Stable Discharge Disposition: Disch w/ Home Health Serv Discharge Time: <= 30 minutes Discharge Instructions DIET: Follow Instructions for: Heart Healthy Diet Activities you can perform: Weight Bearing as Yaneth Follow up Referrals: PCP Follow-up - 1 Week Urology - 1 Week with Chito Glass DO New Medications: Ondansetron Odt (Ondansetron Odt) 4 Mg Tab 4 MG SL Q6HR PRN for Nausea/Vomiting, #10 TAB 0 Refills Tamsulosin (Tamsulosin) 0.4 Mg Cap 0.4 MG PO HS for Manage Prostate Problems, #30 CAP 0 Refills Continued Medications: Albuterol 6.7 GM Inh (Proventil Hfa 6.7 GM Inh) 90 Mcg/Act Aer 2 PUFF INH Q6H PRN for SHORTNESS OF BREATH, #1 INHALER 0 Refills Atorvastatin (Lipitor) 10 Mg Tab 10 MG PO HS for Cholesterol Management, #30 TAB 0 Refills Bupropion HCl ER 12 HR (Wellbutrin SR 12 HR) 150 Mg Tab 150 MG PO HS for Control Depression, TAB 0 Refills Diltiazem CD 24 HR (Cardizem CD 24 HR) 180 Mg Caper 180 MG PO HS, #30 CAP 0 Refills Gabapentin (Gabapentin) 300 Mg Cap 300 MG PO TID, #90 CAP 0 Refills Golimumab Inj (Simponi Inj) 50 Mg/0.5 Ml Syr 50 MG SQ Q30D, #0 SYRINGE 0 Refills Methotrexate (Methotrexate) 2.5 Mg Tab 2.5 MG PO Q7D, TAB 0 Refills Modafinil (Provigil) 200 Mg Tab 200 MG PO DAILY for Manage Daytime Sleepiness, TAB 0 Refills Omeprazole (Omeprazole) 20 Mg Tab 20 MG PO DAILY, #30 TAB 0 Refills Pantoprazole (Protonix) 40 Mg Tab 40 MG PO DAILY for Reflux, #30 TAB 0 Refills Ranitidine (Ranitidine) 150 Mg Tab 150 MG PO BID for Heartburn Management, #60 TAB 0 Refills Sucralfate (Sucralfate) 1 Gm Tab 1 GM PO TID for Duodenal ulcer, #90 TAB 0 Refills on empty stomach Trazodone (Trazodone) 150 Mg Tab 150 MG PO HS for Control Depression, #30 TAB 0 Refills Eloy Llanos MD Jun 29, 2017 12:59
[2017-06-29 14:30] VITALS: BP 101/62; PULSE 74; RESP 18; O2SAT 95
[2017-06-29] MEDS ORDERED: LIDOCAINE HCL 5% PATCH T-DERMAL ONE (14:45)
== END 2017-06-29 15:17 | disposition home health service (06) | DRG 694 ==
LOC: PHED 05:48 → PHEDA 11:52 → PH3B 12:39 → OBSVTOIN 06-28 08:33
PROVIDERS: ADMIT Hospitalist; ATTEND Hospitalist
DX: N13.2 Hydronephrosis with renal and ureteral calculous obstruction (principal); N17.9 Acute kidney failure, unspecified; I11.0 Hypertensive heart disease with heart failure; I50.9 Heart failure, unspecified; E11.9 Type 2 diabetes mellitus without complications; E86.0 Dehydration; A08.4 Viral intestinal infection, unspecified; I25.10 Atherosclerotic heart disease of native coronary artery without angina pectoris; E78.5 Hyperlipidemia, unspecified; M06.9 Rheumatoid arthritis, unspecified; I25.2 Old myocardial infarction; H91.90 Unspecified hearing loss, unspecified ear; F12.90 Cannabis use, unspecified, uncomplicated; F41.8 Other specified anxiety disorders; Z87.891 Personal history of nicotine dependence; Z95.5 Presence of coronary angioplasty implant and graft
CPT/HCPCS: 71045; 74174; 80048; 80053; 81001; 82948; 83605; 83690; 83735; 84484; 85025; 85610; 85730; 87086; 93005; 96361; 96365; 96366; 96367; 96375; C9113; G0378; J0696; J1170; J1650; J2270; J2405; J2543; J3480; J7030; J7040; Q9967

== ENCOUNTER 2017-07-14 10:03 | Emergency (ER) | payer MEDICARE, BC, OTHER ==
[~2017-07-14] VITALS: Ht 182.9 cm; Wt 77.6 kg
[~2017-07-14 10:03] MED LIST changes: -AZIT250T3 PO; -BENZ100 PO; +ONDA4TAB7 SL; -PRED-503 PO; -PRED20 PO; +TAMS0.4C4 PO
[2017-07-14 10:05] VITALS: BP 141/74; PULSE 107; RESP 16; TEMP 97.9; O2SAT 96
[2017-07-14] MEDS ORDERED: ONDANSETRON HCL 4 MG/2 ML VIAL IV PUSH ONE (10:30)
[2017-07-14] MEDS ORDERED: SODIUM CHLOR 0.9% 1000 ML INJ 1,000 ML IV ONE (10:30)
[2017-07-14] MEDS ORDERED: TRAZ1TAB14 PO (10:38)
[2017-07-14 10:48] LABS: AUTOMATED NEUTROPHIL # 2.4 TH/MM3 (1.8-7.7); BASOPHIL # 0.1 TH/MM3 (0-0.2); BASOPHIL % 2.5 % (0.0-2.0); EOSINOPHIL # 0.2 TH/MM3 (0-0.4); EOSINOPHIL % 3.1 % (0.0-4.0); HEMATOCRIT 45.8 % (39.0-51.0); HEMOGLOBIN 14.8 GM/DL (13.0-17.0); LYMPH % 37.1 % (9.0-44.0); LYMPHOCYTE # 1.8 TH/MM3 (1.0-4.8); MEAN CELL VOLUME 94.7 FL (80.0-100.0); MEAN CORPUSCULAR HEMOGLOBIN 30.6 PG (27.0-34.0); MEAN CORPUSCULAR HGB CONC 32.3 % (32.0-36.0); MEAN PLATELET VOLUME 7.9 FL (7.0-11.0); MONO % 8.5 % (0.0-8.0); MONOCYTE # 0.4 TH/MM3 (0-0.9); NEUT % 48.8 % (16.0-70.0); PLATELET COUNT 171 TH/MM3 (150-450); RED BLOOD COUNT 4.83 MIL/MM3 (4.50-5.90); RED CELL DISTRIBUTION WIDTH 14.4 % (11.6-17.2); WHITE BLOOD COUNT 4.9 TH/MM3 (4.0-11.0)
[2017-07-14 10:56] LABS: CHLORIDE 103 MEQ/L (98-107); SODIUM (NA) 137 MEQ/L (136-145)
[2017-07-14 10:59] LABS: CALCIUM 9.2 MG/DL (8.5-10.1)
[2017-07-14 11:00] LABS: ALBUMIN 3.5 GM/DL (3.4-5.0); BICARBONATE 23.3 MEQ/L (21.0-32.0); BLOOD UREA NITROGEN 18 MG/DL (7-18); GLUCOSE,RANDOM 93 MG/DL (74-106)
[2017-07-14 11:03] LABS: ALT (GPT) 30 U/L (12-78); AST (GOT) 35 U/L (15-37); GLOMERULAR FILTRATION RATE 50 ML/MIN (>89)
[2017-07-14 11:04] LABS: TOTAL BILIRUBIN ADULT 0.4 MG/DL (0.2-1.0); TOTAL PROTEIN 7.2 GM/DL (6.4-8.2)
[2017-07-14 11:06] LABS: ALKALINE PHOSPHATASE 59 U/L (45-117)
[2017-07-14 11:08] LABS: TROPONIN I LESS THAN 0.02 NG/ML (0.02-0.05)
[2017-07-14 11:11] VITALS: BP 113/71; PULSE 72; RESP 16; O2SAT 92
--- NOTE | 2017-07-14 11:29 | RADRPT ---
EXAM DATE/TIME: 07/14/2017 11:00 [facility] COMPARISON: No previous studies available for comparison. INDICATIONS : Mid abdominal pain. Nausea, vomiting and diarrhea. ORAL CONTRAST: No oral contrast ingested. RADIATION DOSE: 6.65 CTDIvol (mGy) MEDICAL HISTORY : Congestive heart failure. Myocardial infarction. Renal insufficiency, chronic.Hypertension. Diabete s. SURGICAL HISTORY : Coronary artery stent. ENCOUNTER: Initial ACUITY: 4 - 6 days PAIN SCALE: 7/10 LOCATION: Abdomen. TECHNIQUE: Volumetric scanning of the abdomen and pelvis was performed. Using automated exposure control and ad justment of the mA and/or kV according to patient size, radiation dose was kept as low as reasonably achievable to obtain optimal diagnostic quality images. DICOM format image data is available electro nically for review and comparison. FINDINGS: LOWER LUNGS: The visualized lower lungs are clear. LIVER: Homogeneous density with a 1 cm low density lesion adjacent to the gallbladder fossa. Most likely a b enign cyst. There is no dilation of the biliary tree. No calcified gallstones. SPLEEN: Normal size without lesion. PANCREAS: Within normal limits. KIDNEYS: 2 calcifications within the right kidney. A 6 x 3 mm stone within the proximal right ureter. Therefor e calcification within the left kidney. Large left renal cyst measuring 4.2 cm. ADRENAL GLANDS: Within normal limits. VASCULAR: There is no aortic aneurysm. BOWEL/MESENTERY: The stomach, small bowel, and colon demonstrate no acute abnormality. There is no free intraperitone al air or fluid. ABDOMINAL WALL: Within normal limits. RETROPERITONEUM: There is no lymphadenopathy. BLADDER: No wall thickening or mass. REPRODUCTIVE: Within normal limits. 2.2 cm peripheral calcification left hemipelvis could be calcified lymph node. 1 cm calcification in the midline. INGUINAL: There is no lymphadenopathy or hernia. MUSCULOSKELETAL: Within normal limits for patient age. CONCLUSION: Multiple renal stones bilaterally. 6 x 3 mm calcification proximal right ureter almost certainly symp tomatic without significant hydronephrosis at this point. Liam Jerome MD on July 14, 2017 at 11:21 Board Certified Radiologist. This report was verified electronically.
[2017-07-14 11:52] LABS: BLOOD, URINE SMALL (NEG); GLUCOSE,URINE NEG (NEG); KETONE, URINE 80 OR GREATER mg/dL (NEG); NITRITE,URINE NEG (NEG); URINE COLOR YELLOW (YELLW/STRAW); URINE LEUKOCYTE ESTERASE NEG (NEG)
[2017-07-14 11:57] LABS: BILIRUBIN, URINE NEG (NEG)
[2017-07-14] MEDS ORDERED: ZOFR4TAB3 SL (12:03)
--- NOTE | 2017-07-14 12:04 | PD ---
HPI Chief Complaint: GI Complaint Time Seen by Provider: 10:15 Travel History International Travel<30 days: No Contact w/Intl Traveler<30days: No Traveled to known affect area: No History of Present Illness HPI This 72-year-old male says he has not been feeling well for several days. He says he had some vomiting and poor appetite. He has not eaten for several days. He was admitted to the hospital last week at that time he had a urinary tract infection associated with kidney stones. He has not had fever or chills. He does have a history of paroxysmal atrial fibrillation. He is not having pain. PFSH Past Medical History Hx Anticoagulant Therapy: Yes (asa 162) Arthritis: Yes Atrial Fibrillation: Yes Autoimmune Disease: No Blood Disorders: No Anxiety: Yes Depression: Yes Heart Rhythm Problems: No Cancer: No Cardiac Catheterization: Yes (stent) Cardiovascular Problems: Yes (CO with one stent) High Cholesterol: Yes Chemotherapy: No Chest Pain: Yes Congestive Heart Failure: Yes Coronary Artery Disease: Yes Diabetes: Yes Patient Takes Glucophage: No Diminished Hearing: Yes (HEARING AIDS) Endocrine: No Gastrointestinal Disorders: No GERD: No Glaucoma: No Genitourinary: Yes Hepatitis: No Hiatal Hernia: No Heparin Induced Thrombocytopen: No Hypertension: Yes Immune Disorder: Yes (RA) Implanted Vascular Access Dvce: No Kidney Stones: No Musculoskeletal: Yes (ARTHRITIS) Neurologic: No Psychiatric: Yes (DEPRESSION/ANXIETY) Reproductive: No Respiratory: No Integumentary: Yes (psoriasis ) Immunizations Current: No Myocardial Infarction: Yes (2006) Radiation Therapy: No Renal Failure: No Thyroid Disease: No Ulcer: No Tetanus Vaccination: < 5 Years Influenza Vaccination: Yes Past Surgical History Abdominal Surgery: No AICD: No Appendectomy: No Arteriovenous Shunt: No Body Medical Devices: cardiac stent Cardiac Surgery: Yes (CARDIAC STENTS PLACED 2006) Cholecystectomy: No Coronary Artery Bypass Graft: No Ear Surgery: No Endocrine Surgery: No Eye Surgery: No Genitourinary Surgery: No Insulin Pump: No Joint Replacement: No Neurologic Surgery: No Oral Surgery: No Pacemaker: No Thoracic Surgery: No Other Surgery: Yes (throat 1964 sliced) Family History Family Myocardial Infarction: Yes (FATHER) Social History Alcohol Use: Yes (OCCASSIONAL GLASS WINE) Tobacco Use: No Substance Use: Yes (Margiuna Daily, Used Yesterday) Allergies-Medications (Allergen,Severity, Reaction): Coded Allergies: atropine (Verified Allergy, Severe, HIVES, 07/14/17) diphenoxylate (Verified Allergy, Severe, HIVES, 07/14/17) loperamide (Verified Allergy, Severe, DOES NOT REMEMBER, 07/14/17) Reported Meds & Prescriptions Reported Meds & Active Scripts Active Ondansetron Odt 4 Mg Tab 4 Mg SL Q6HR PRN Tamsulosin (Tamsulosin HCl) 0.4 Mg Cap 0.4 Mg PO HS Proventil Hfa 6.7 GM Inh (Albuterol Sulfate) 90 Mcg/Act Aer 2 Puff INH Q6H PRN Sucralfate 1 Gm Tab 1 Gm PO TID on empty stomach Ranitidine (Ranitidine HCl) 150 Mg Tab 150 Mg PO BID Reported Trazodone (Trazodone HCl) 150 Mg Tablet 150 Mg PO HS Omeprazole 20 Mg Tab 20 Mg PO DAILY Protonix (Pantoprazole Sodium) 40 Mg Tab 40 Mg PO DAILY Provigil (Modafinil) 200 Mg Tab 200 Mg PO DAILY Methotrexate 2.5 Mg Tab 2.5 Mg PO Q7D Gabapentin 300 Mg Cap 300 Mg PO TID Cardizem CD 24 HR (Diltiazem CD 24 HR) 180 Mg Caper 180 Mg PO HS Wellbutrin SR 12 HR (Bupropion HCl) 150 Mg Tab 150 Mg PO HS Lipitor (Atorvastatin Calcium) 10 Mg Tab 10 Mg PO HS Review of Systems General / Constitutional: No: Fever, Chills Eyes: No: Diploplia, Blurred Vision HENT: No: Headaches Cardiovascular: No: Chest Pain or Discomfort Gastrointestinal: Positive: Nausea, Loss of Appetite Genitourinary: No: Urgency, Frequency Musculoskeletal: No: Myalgias, Arthralgias Skin: No Rash, No Itching Endocrine: No: Heat Intolerance Hematologic/Lymphatic: No: Easy Bruising Physical Exam Narrative GENERAL: Well-developed male SKIN: Focused skin assessment warm/dry. HEAD: Atraumatic. Normocephalic. EYES: Pupils equal and round. No scleral icterus. No injection or drainage. ENT: No nasal bleeding or discharge. Mucous membranes pink and moist. NECK: Trachea midline. No JVD. CARDIOVASCULAR: Regular rate and rhythm. No murmur appreciated. RESPIRATORY: No accessory muscle use. Clear to auscultation. Breath sounds equal bilaterally. GASTROINTESTINAL: Abdomen soft, non-tender, nondistended. Hepatic and splenic margins not palpable. MUSCULOSKELETAL: No obvious deformities. No clubbing. No cyanosis. No edema. NEUROLOGICAL: Awake and alert. No obvious cranial nerve deficits. Motor grossly within normal limits. Normal speech. PSYCHIATRIC: Appropriate mood and affect; insight and judgment normal. Data Data Last Documented VS Vital Signs Date Time Temp Pulse Resp B/P (MAP) Pulse Ox O2 Delivery O2 Flow Rate FiO2 07/14/17 11:11 72 16 113/71 (85) 92 Room Air 07/14/17 10:05 97.9 Orders Orders Electrocardiogram (07/14/17 10:20) Complete Blood Count With Diff (07/14/17 10:20) Comprehensive Metabolic Panel (07/14/17 10:20) Troponin I (07/14/17 10:20) B-Type Natriuretic Peptide (07/14/17 10:20) Sodium Chlor 0.9% 1000 Ml Inj (Ns 1000 M (07/14/17 10:30) Ondansetron Inj (Zofran Inj) (07/14/17 10:30) Urinalysis - C+S If Indicated (07/14/17 10:29) Ct Abd/Pel W/O Iv Contrast (07/14/17 10:29) Labs Laboratory Tests Test 07/14/17 10:25 07/14/17 11:45 White Blood Count 4.9 TH/MM3 Red Blood Count 4.83 MIL/MM3 Hemoglobin 14.8 GM/DL Hematocrit 45.8 % Mean Corpuscular Volume 94.7 FL Mean Corpuscular Hemoglobin 30.6 PG Mean Corpuscular Hemoglobin Concent 32.3 % Red Cell Distribution Width 14.4 % Platelet Count 171 TH/MM3 Mean Platelet Volume 7.9 FL Neutrophils (%) (Auto) 48.8 % Lymphocytes (%) (Auto) 37.1 % Monocytes (%) (Auto) 8.5 % Eosinophils (%) (Auto) 3.1 % Basophils (%) (Auto) 2.5 % Neutrophils # (Auto) 2.4 TH/MM3 Lymphocytes # (Auto) 1.8 TH/MM3 Monocytes # (Auto) 0.4 TH/MM3 Eosinophils # (Auto) 0.2 TH/MM3 Basophils # (Auto) 0.1 TH/MM3 CBC Comment DIFF FINAL Differential Comment Blood Urea Nitrogen 18 MG/DL Creatinine 1.40 MG/DL Random Glucose 93 MG/DL Total Protein 7.2 GM/DL Albumin 3.5 GM/DL Calcium Level 9.2 MG/DL Alkaline Phosphatase 59 U/L Aspartate Amino Transf (AST/SGOT) 35 U/L Alanine Aminotransferase (ALT/SGPT) 30 U/L Total Bilirubin 0.4 MG/DL Sodium Level 137 MEQ/L Potassium Level 3.8 MEQ/L Chloride Level 103 MEQ/L Carbon Dioxide Level 23.3 MEQ/L Anion Gap 11 MEQ/L Estimat Glomerular Filtration Rate 50 ML/MIN Troponin I LESS THAN 0.02 NG/ML B-Type Natriuretic Peptide 15 PG/ML Urine Color YELLOW Urine Turbidity CLEAR Urine pH 6.0 Urine Specific [place] 1.020 Urine Protein TRACE mg/dL Urine Glucose (UA) NEG mg/dL Urine Ketones 80 OR GREATER mg/dL Urine Occult Blood SMALL Urine Nitrite NEG Urine Bilirubin NEG Urine Urobilinogen 0.2 MG/DL Urine Leukocyte Esterase NEG Urine RBC 10-14 /hpf Urine WBC 3-5 /hpf Microscopic Urinalysis Comment CULT NOT INDICATED MDM Medical Decision Making Medical Screen Exam Complete: Yes Emergency Medical Condition: Yes Medical Record Reviewed: Yes Differential Diagnosis Differential includes gastritis, UTI, gastroenteritis Narrative Course Hemoglobin is 14 his white count is 4.9. His CT scan does show pending is 1.4. Urine does not show infection. He is stable for discharge I will prescribe some Zofran for him to use for nausea Diagnosis Primary Impression: Gastritis Scripts Ondansetron Odt (Zofran Odt) 4 Mg Tab 4 MG SL Q6HR Y for Nausea/Vomiting, #10 TAB 0 Refills Prov: Emilio Reich MD 07/14/17 Disposition: 01 DISCHARGE HOME Condition: Stable Emilio Reich MD Jul 14, 2017 12:04
[2017-07-14 12:18] VITALS: BP 133/78
--- NOTE | 2017-07-14 17:52 | EKG ---
Date Performed: 07/14/2017 Time Performed: 10:17:52 PTAGE: 72 years EKG: Sinus rhythm WITH SINUS ARRHYTHMIA MARKED LEFT AXIS DEVIATION NONSPECIFIC T-WAVE ABNORMALITY ABNORMAL ECG left an terior fascicular block PREVIOUS TRACING : 06/27/2017 06.37 DOCTOR: Cyrus Sampson Interpretating Date/Time 07/14/2017 17:51:23
== END 2017-07-14 12:25 | disposition home or self-care (01) ==
LOC: PHED 10:03
DX: K29.70 Gastritis, unspecified, without bleeding (principal); N20.0 Calculus of kidney; I49.9 Cardiac arrhythmia, unspecified; I44.4 Left anterior fascicular block; R94.31 Abnormal electrocardiogram [ECG] [EKG]; I11.0 Hypertensive heart disease with heart failure; I50.9 Heart failure, unspecified; E11.9 Type 2 diabetes mellitus without complications; I25.10 Atherosclerotic heart disease of native coronary artery without angina pectoris
CPT/HCPCS: 74176; 80053; 81001; 83880; 84484; 85025; 93005; 96361; 96374; 99285; J2405; J7030